=== PATIENT | male | born 1970 | race Two or more races ===

== ENCOUNTER 2020-01-19 09:24 | Outpatient (REF) | payer SELFPAY ==
[2020-01-19 10:21] LABS: Cholesterol 200 mg/dL
== END 2020-01-19 09:25 | disposition home or self-care (01) ==
LOC: HO.LNC 09:24
PROVIDERS: Visit Provider Pathology Anatomic Pathology & Clinical Pathology
DX: R79.89 Other specified abnormal findings of blood chemistry (principal)
CPT/HCPCS: 82465

== ENCOUNTER 2020-03-22 12:42 | Outpatient (REF) | payer SELFPAY ==
[2020-03-22 14:15] LABS: SARS COV2 IgG Negative (Negative)
[2020-03-22 17:44] LABS: Cholesterol 179 mg/dL
== END 2020-03-22 12:43 | disposition home or self-care (01) ==
LOC: HO.LNC 12:42
PROVIDERS: Visit Provider Pathology Anatomic Pathology & Clinical Pathology
DX: Z13.89 Encounter for screening for other disorder (principal)
CPT/HCPCS: 36415; 82465; 86769

== ENCOUNTER 2020-04-12 14:10 | Outpatient (REF) | payer OTHER, SELFPAY ==
[2020-04-12 14:59] LABS: MANUAL DIFF FLAG NO
[2020-04-12 15:03] LABS: Basophils Percent Auto 0.7 % (0-2); Eosinophils Absolute Auto 0.2 X10*3/uL (0.0-0.4); Hematocrit 44.1 % (42-52); Imm Gran Abs Auto 0.02 X10*3/uL (0.00-0.03); Imm Gran Pct Auto 0.4 % (0.0-0.4); Lymphocytes Absolute Auto 1.1 X10*3/uL (1.2-4.9); Lymphocytes Percent Auto 19.3 % (20-40); Mean Corpuscular Hemoglobin 29.4 pg (27.0-33.0); Mean Corpuscular Volume 86.5 fL (80-98); Mean Platelet Volume 10.4 fL (9.4-12.4); Monocytes Absolute Auto 0.6 X10*3/uL (0.1-1.2); Neutrophils Absolute Auto 3.7 X10*3/uL (2.0-8.3); Neutrophils Percent Auto 65.6 % (45-73); Platelet Count 215 X10*3/uL (160-400); Red Cell Distribution Width 12.7 % (11.0-16.0); White Blood Count 5.6 X10*3/uL (4.8-10.8)
[2020-04-12 15:43] LABS: Anion Gap 9 (12-20); Blood Urea Nitrogen 15 mg/dL (9-16); Calcium 9.6 mg/dL (8.4-10.2); Carbon Dioxide 29 mmol/L (22-29); Chloride 105 mmol/L (96-108); Cholesterol 179 mg/dL; Estimated Glomerular Filt Rate > 60; Glucose Random 83 mg/dL (60-115); HDL Cholesterol 62 mg/dL; LDL Cholesterol Calculated 111 mg/dl; Potassium 4.3 mmol/L (3.3-5.1); Sodium 139 mmol/L (135-145); Triglycerides 34 mg/dL
[2020-04-12 15:47] LABS: TSH reflex Free T4 0.41 uIU/mL (0.32-4.0)
[2020-04-12 15:57] LABS: Reflex LDLD? No
== END 2020-04-12 14:11 | disposition home or self-care (01) ==
LOC: HO.LAB 14:10
PROVIDERS: PCP Internal Medicine; Visit Provider Nurse Practitioner Family
DX: Z09 Encounter for follow-up examination after completed treatment for conditions other than malignant neoplasm (principal)
CPT/HCPCS: 36415; 80048; 80061; 84443; 85025

== ENCOUNTER 2020-04-20 04:05 | Emergency (ER) | payer OTHER, SELFPAY ==
--- NOTE | ~2020-04-20 | CT_ITS ---
EXAMINATION: CT ANGIOGRAM OF THE CHEST WITH AND WITHOUT CONTRAST (CT PULMONARY ANGIOGRAM FOR PE) CLINICAL INFORMATION: Reason for Exam Palpitations, elevated D-dimer, shortness of breath COMPARISON: 11/12/2017 TECHNIQUE: Prior to contrast administration, noncontrast localization images were obtained. Subsequently, multidetector volumetric imaging was performed from the thoracic inlet to below the diaphragms following the administration of 65 mL Omnipaque 350 intravenous contrast. No contrast reaction reported Sagittal, coronal, and MIP oblique sagittal reformatted images were obtained on the CT workstation, uploaded to PACS, and reviewed. This CT examination was performed using dose optimization techniques as appropriate, variously including the following: *Automated exposure control *Adjustment of mA and/or kV according to patient size (this includes techniques or standardized protocols for targeted exams where dose is matched to indication/reason for exam; i.e. extremities or head) *Use of iterative reconstruction technique Total exam dose-length product 352 mGy-cm FINDINGS: QUALITY OF STUDY/CONTRAST BOLUS: Satisfactory. PULMONARY ARTERIES: No central or segmental pulmonary emboli. THORACIC AORTA: No aneurysm or dissection. LUNG: No focal consolidation, nodules or masses. The central airways are patent. PLEURA: No pleural effusion or pneumothorax. MEDIASTINUM: Normal heart size. No pericardial effusion. No hilar or mediastinal lymphadenopathy. No evidence of septal bowing or right heart strain. CHEST WALL/AXILLA: No axillary or internal mammary lymphadenopathy. OSSEOUS STRUCTURES: No acute or suspicious osseous abnormality. Mild degenerative changes of the spine. UPPER ABDOMEN: Unremarkable. No reflux of contrast into the hepatic veins to suggest elevated right heart pressures. CT/CT angio chest PE protocol IMPRESSION: No pulmonary embolism or other acute intrathoracic abnormality. VTE: negative
[2020-04-20 04:14] VITALS: BP 147/81; PULSE 97; RESP 20; TEMP 36.4; O2SAT 100; BMI 33.0
--- NOTE | 2020-04-20 04:14 | ECG_ITS ---
Test Reason : PALP Blood Pressure : / mmHG Vent. Rate : 092 BPM Atrial Rate : 092 BPM P-R Int : 152 ms QRS Dur : 092 ms QT Int : 364 ms P-R-T Axes : 065 041 045 degrees QTc Int : 450 ms Normal sinus rhythm Normal ECG No previous ECGs available Referred By: Cristin Rodriguez Electronically Signed By:David Lopez
--- NOTE | 2020-04-20 04:22 | ED_ITS ---
HPI - Arrhythmia/Palpitations General Chief Complaint: Arrhythmia/Palpitations Stated Complaint: Palpitations Time Seen by Provider: 04/20/20 04:13 Source: patient Mode of arrival: ambulatory History of Present Illness HPI narrative: This is a 50-year-old male without significant past medical history who presents with onset of ?palpitations and racing heart? that occurred at approximately 2:00 a.m. this morning. Patient denies any associated headaches, dizziness, nausea, diaphoresis, but did have some mild shortness of breath. Patient states that his symptoms improved as he was coming to the emergency department. He endorses that this is happened previously but it was months ago. He denies any history of snoring or being told that he had obstructive sleep apnea. Of note, patient was recently started on terbinafine for onychomycosis. Related Data Previous Rx's Medication Instructions Recorded terbinafine HCl 250 mg tablet 250 mg PO DAILY 90 Days #90 tab 04/19/20 Allergies Allergy/AdvReac Type Severity Reaction Status Date / Time No Known Allergies Allergy Verified 04/19/20 09:12 [No Known Allergies*] Review of Systems Review of Systems: Pertinent positives and negatives as stated in HPI 10 point review systems is otherwise negative. PMFSH Past Medical History Source: nursing notes reviewed Medical History Obesity (BMI 30.0-34.9) Surgical History History of arthroscopy of left knee Family History Family History Father Suicide Mother No problems noted. Maternal Grandfather Prostate cancer Paternal Grandfather Hypertension Stroke Social History Social History Alcohol intake: current Alcohol intake frequency: a few times a month Smoking Status: Current some day smoker Tobacco Type: Cigarette Advance Directives: No Physical Exam Vital Signs: Vital Signs: Last Vital Signs Temp 97.6 F 04/20/20 04:14 Pulse 97 04/20/20 04:14 Resp 20 04/20/20 04:14 BP 147/81 H 04/20/20 04:14 Pulse Ox 100 04/20/20 04:14 Body Mass Index 33.0 VITAL SIGNS: Reviewed. GENERAL: Well developed, well nourished, in no acute distress. HEAD: Normocephalic/atraumatic, EYES: PERRLA, EOMI NOSE: Nares patent bilateral OROPHARYNX: no oral lesions noted, posterior pharynx clear NECK: Supple, no adenopathy LUNGS: Normal breath sounds. SpO2<100> CARDIOVASCULAR: Regular rate and rhythm without noted murmurs, no JVD or lower extremity edema. ABDOMEN: Obese, Soft, non-tender, non-distended with bowel sounds. SKIN: Inspection of the skin reveals no rashes NEUROLOGIC: Alert and oriented x 4. Strength and sensation to light touch were grossly intact x 4. Course Course Course Narrative: This is a 50-year-old male with history and clinical presentation consistent with palpitations that on review here in the emergency department had resolved and no observed ectopic beats on EKG. Will evaluate for any cardiopulmonary, PE, electrolyte etiologies. On review of all investigations there is a mild hypokalemia which was repleted with p.o. replacement and although there was an elevated D-dimer follow-up CT with PE protocol was negative for evidence of PE. Patient is otherwise stable and cleared for discharge and strongly recommended to follow-up with his primary care provider. MDM - Arrhythmia/Palpitations Lab Data Result diagrams: 04/20/20 04:22 04/20/20 04:22 Labs: Lab Results 04/20/20 04/20/20 04/20/20 Range/Units 04:22 04:22 04:22 WBC 6.8 (4.8-10.8) X10*3/uL RBC 4.96 (4.60-5.80) X10*6/uL Hgb 14.6 (14.0-18.0) g/dl Hct 42.2 (42-52) % MCV 85.1 (80-98) fL MCH 29.4 (27.0-33.0) pg MCHC 34.6 (31.0-36.0) g/dl RDW 12.7 (11.0-16.0) % Plt Count 223 (160-400) X10*3/uL MPV 10.3 (9.4-12.4) fL Immature Gran % (Auto) 0.1 (0.0-0.4) % Neut % (Auto) 63.5 (45-73) % Lymph % (Auto) 23.4 (20-40) % [place] % (Auto) 8.9 (2-11) % Eos % (Auto) 2.8 (0-4) % Baso % (Auto) 1.3 (0-2) % Lymph # (Auto) 1.6 (1.2-4.9) X10*3/uL [place] # (Auto) 0.6 (0.1-1.2) X10*3/uL Eos # (Auto) 0.2 (0.0-0.4) X10*3/uL Baso # (Auto) 0.1 (0.0-0.2) X10*3/uL Abs Immat Gran (auto) 0.01 (0.00-0.03) X10*3/uL Absolute Neuts (auto) 4.3 (2.0-8.3) X10*3/uL Absolute Nucleated RBC 0.000 (0.0-0.012) X10*3/uL Nucleated RBC % (auto) 0.0 (0.0-0.2) /100WBC PT 12.6 (10.8-13.0) SEC INR 1.1 (0.9-1.1) D-Dimer 356 NG/ML Sodium 140 (135-145) mmol/L Potassium 3.2 L D (3.3-5.1) mmol/L Chloride 105 (96-108) mmol/L Carbon Dioxide 26 (22-29) mmol/L Anion Gap 12 (12-20) BUN 14 (9-16) mg/dL Creatinine 1.10 (0.5-1.4) mg/dL Estim Creat Clear Calc 85.7 Estimated GFR > 60 Random Glucose 120 H D (60-115) mg/dL Calcium 9.1 (8.4-10.2) mg/dL Total Bilirubin 0.7 (0.0-1.0) mg/dL AST 25 (5-37) U/L ALT 20 (0-40) U/L Alkaline Phosphatase 54 (39-117) U/L Troponin I High Sens (<3.5-35.0) ng/L Total Protein 7.5 (6.5-8.0) g/dL Albumin 4.4 (3.5-5.0) g/dL Urine Color Urine Appearance Urine pH (5.0-8.0) Ur Specific [place] (1.005-1.025) Urine Protein (NEG-TRACE) MG/DL Urine Glucose (UA) (NEG) MG/DL Urine Ketones (NEG) MG/DL Urine Blood (NEG) Urine Nitrite (NEG) Ur Leukocyte Esterase (NEG) Urine RBC (0) /HPF Urine WBC (0-4) /HPF Ur Squamous Epith Cells /LPF Urine Bacteria /LPF Urine Mucus /LPF Urine Opiates Screen (Not Detect) Ur Barbiturates Screen (Not Detect) Ur Phencyclidine Scrn (Not Detect) Ur Amphetamines Screen (Not Detect) U Benzodiazepines Scrn (Not Detect) Urine Cocaine Screen (Not Detect) U Marijuana (THC) Screen (Not Detect) Ethyl Alcohol mg/dL 04/20/20 04/20/20 04/20/20 Range/Units 04:22 04:22 04:45 WBC (4.8-10.8) X10*3/uL RBC (4.60-5.80) X10*6/uL Hgb (14.0-18.0) g/dl Hct (42-52) % MCV (80-98) fL MCH (27.0-33.0) pg MCHC (31.0-36.0) g/dl RDW (11.0-16.0) % Plt Count (160-400) X10*3/uL MPV (9.4-12.4) fL Immature Gran % (Auto) (0.0-0.4) % Neut % (Auto) (45-73) % Lymph % (Auto) (20-40) % [place] % (Auto) (2-11) % Eos % (Auto) (0-4) % Baso % (Auto) (0-2) % Lymph # (Auto) (1.2-4.9) X10*3/uL [place] # (Auto) (0.1-1.2) X10*3/uL Eos # (Auto) (0.0-0.4) X10*3/uL Baso # (Auto) (0.0-0.2) X10*3/uL Abs Immat Gran (auto) (0.00-0.03) X10*3/uL Absolute Neuts (auto) (2.0-8.3) X10*3/uL Absolute Nucleated RBC (0.0-0.012) X10*3/uL Nucleated RBC % (auto) (0.0-0.2) /100WBC PT (10.8-13.0) SEC INR (0.9-1.1) D-Dimer NG/ML Sodium (135-145) mmol/L Potassium (3.3-5.1) mmol/L Chloride (96-108) mmol/L Carbon Dioxide (22-29) mmol/L Anion Gap (12-20) BUN (9-16) mg/dL Creatinine (0.5-1.4) mg/dL Estim Creat Clear Calc Estimated GFR Random Glucose (60-115) mg/dL Calcium (8.4-10.2) mg/dL Total Bilirubin (0.0-1.0) mg/dL AST (5-37) U/L ALT (0-40) U/L Alkaline Phosphatase (39-117) U/L Troponin I High Sens < 3.5 (<3.5-35.0) ng/L Total Protein (6.5-8.0) g/dL Albumin (3.5-5.0) g/dL Urine Color DARK YELLOW Urine Appearance CLEAR Urine pH 6.0 (5.0-8.0) Ur Specific [place] >= 1.030 H (1.005-1.025) Urine Protein NEG (NEG-TRACE) MG/DL Urine Glucose (UA) NEG (NEG) MG/DL Urine Ketones NEG (NEG) MG/DL Urine Blood TRACE (NEG) Urine Nitrite NEG (NEG) Ur Leukocyte Esterase NEG (NEG) Urine RBC 0-2 (0) /HPF Urine WBC 1-4 (0-4) /HPF Ur Squamous Epith Cells 1+ /LPF Urine Bacteria NONE /LPF Urine Mucus 3+ /LPF Urine Opiates Screen (Not Detect) Ur Barbiturates Screen (Not Detect) Ur Phencyclidine Scrn (Not Detect) Ur Amphetamines Screen (Not Detect) U Benzodiazepines Scrn (Not Detect) Urine Cocaine Screen (Not Detect) U Marijuana (THC) Screen (Not Detect) Ethyl Alcohol < 10 mg/dL 04/20/20 Range/Units 04:45 WBC (4.8-10.8) X10*3/uL RBC (4.60-5.80) X10*6/uL Hgb (14.0-18.0) g/dl Hct (42-52) % MCV (80-98) fL MCH (27.0-33.0) pg MCHC (31.0-36.0) g/dl RDW (11.0-16.0) % Plt Count (160-400) X10*3/uL MPV (9.4-12.4) fL Immature Gran % (Auto) (0.0-0.4) % Neut % (Auto) (45-73) % Lymph % (Auto) (20-40) % [place] % (Auto) (2-11) % Eos % (Auto) (0-4) % Baso % (Auto) (0-2) % Lymph # (Auto) (1.2-4.9) X10*3/uL [place] # (Auto) (0.1-1.2) X10*3/uL Eos # (Auto) (0.0-0.4) X10*3/uL Baso # (Auto) (0.0-0.2) X10*3/uL Abs Immat Gran (auto) (0.00-0.03) X10*3/uL Absolute Neuts (auto) (2.0-8.3) X10*3/uL Absolute Nucleated RBC (0.0-0.012) X10*3/uL Nucleated RBC % (auto) (0.0-0.2) /100WBC PT (10.8-13.0) SEC INR (0.9-1.1) D-Dimer NG/ML Sodium (135-145) mmol/L Potassium (3.3-5.1) mmol/L Chloride (96-108) mmol/L Carbon Dioxide (22-29) mmol/L Anion Gap (12-20) BUN (9-16) mg/dL Creatinine (0.5-1.4) mg/dL Estim Creat Clear Calc Estimated GFR Random Glucose (60-115) mg/dL Calcium (8.4-10.2) mg/dL Total Bilirubin (0.0-1.0) mg/dL AST (5-37) U/L ALT (0-40) U/L Alkaline Phosphatase (39-117) U/L Troponin I High Sens (<3.5-35.0) ng/L Total Protein (6.5-8.0) g/dL Albumin (3.5-5.0) g/dL Urine Color Urine Appearance Urine pH (5.0-8.0) Ur Specific [place] (1.005-1.025) Urine Protein (NEG-TRACE) MG/DL Urine Glucose (UA) (NEG) MG/DL Urine Ketones (NEG) MG/DL Urine Blood (NEG) Urine Nitrite (NEG) Ur Leukocyte Esterase (NEG) Urine RBC (0) /HPF Urine WBC (0-4) /HPF Ur Squamous Epith Cells /LPF Urine Bacteria /LPF Urine Mucus /LPF Urine Opiates Screen Not Detected (Not Detect) Ur Barbiturates Screen Not Detected (Not Detect) Ur Phencyclidine Scrn Not Detected (Not Detect) Ur Amphetamines Screen Not Detected (Not Detect) U Benzodiazepines Scrn Not Detected (Not Detect) Urine Cocaine Screen Not Detected (Not Detect) U Marijuana (THC) Screen Not Detected (Not Detect) Ethyl Alcohol mg/dL ECG Data Attestation: I personally reviewed and interpreted this ECG as follows: Prior ECG tracings: available for review (05/02/2016-stress test report) Interpretation: Normal sinus rhythm, HR-92, no evidence of acute ischemia, IL/QRS/QTC are within normal limits. Discharge Plan Discharge Clinical Impression: Hypokalemia, Palpitation Patient Disposition: Home, Self-Care Instructions: Heart Palpitations (ED), Hypokalemia (ED) Additional Instructions: Anson un seguimiento con laughlin proveedor de atenci?n primaria llamando al consultorio esta ma?alexandrea para marissa reevaluaci?n. No dude en volver al servicio de urgencias si experimenta un empeoramiento bárbara de michael s?ntomas. Prescriptions: No Action terbinafine HCl 250 mg tablet 250 mg PO DAILY 90 Days Qty: 90 RF: 0 Referrals: Alexandrea Pierre MD [Primary Care Provider] - 2 days (Re-evaluation management for low potassium and seen in the emergency department for palpitations with a negative workup.) Print Language: Grenadian
[2020-04-20 04:26] LABS: MANUAL DIFF FLAG NO
[2020-04-20 04:27] LABS: Basophils Absolute Auto 0.1 X10*3/uL (0.0-0.2); Basophils Percent Auto 1.3 % (0-2); Eosinophils Absolute Auto 0.2 X10*3/uL (0.0-0.4); Eosinophils Percent Auto 2.8 % (0-4); Hematocrit 42.2 % (42-52); Hemoglobin 14.6 g/dl (14.0-18.0); Imm Gran Abs Auto 0.01 X10*3/uL (0.00-0.03); Imm Gran Pct Auto 0.1 % (0.0-0.4); Lymphocytes Absolute Auto 1.6 X10*3/uL (1.2-4.9); Lymphocytes Percent Auto 23.4 % (20-40); Mean Corpuscular HGB Conc 34.6 g/dl (31.0-36.0); Mean Corpuscular Hemoglobin 29.4 pg (27.0-33.0); Mean Corpuscular Volume 85.1 fL (80-98); Mean Platelet Volume 10.3 fL (9.4-12.4); Monocytes Absolute Auto 0.6 X10*3/uL (0.1-1.2); Monocytes Percent Auto 8.9 % (2-11); Neutrophils Absolute Auto 4.3 X10*3/uL (2.0-8.3); Neutrophils Percent Auto 63.5 % (45-73); Platelet Count 223 X10*3/uL (160-400); Red Blood Count 4.96 X10*6/uL (4.60-5.80); Red Cell Distribution Width 12.7 % (11.0-16.0); White Blood Count 6.8 X10*3/uL (4.8-10.8)
[2020-04-20 04:32] LABS: INTERNATIONAL NORM RATIO 1.1 (0.9-1.1); Prothrombin Time 12.6 SEC (10.8-13.0)
[2020-04-20 04:49] LABS: Ethanol < 10 mg/dL
[2020-04-20 04:51] LABS: Alanine Aminotransferase 20 U/L (0-40); Albumin Level 4.4 g/dL (3.5-5.0); Alkaline Phosphatase 54 U/L (39-117); Anion Gap 12 (12-20); Aspartate Amino Transferase 25 U/L (5-37); Bilirubin Total 0.7 mg/dL (0.0-1.0); Blood Urea Nitrogen 14 mg/dL (9-16); Calcium 9.1 mg/dL (8.4-10.2); Carbon Dioxide 26 mmol/L (22-29); Chloride 105 mmol/L (96-108); Creatinine Clr Calc Pharmacy 85.7; Estimated Glomerular Filt Rate > 60; Glucose Random 120 mg/dL (60-115); Potassium 3.2 mmol/L (3.3-5.1); Sodium 140 mmol/L (135-145); Total Protein 7.5 g/dL (6.5-8.0)
[2020-04-20 04:52] LABS: Glucose Urine UA NEG (NEG); Leukocyte Esterase Urine NEG (NEG); Nitrite Urine NEG (NEG); Specific Gravity - Urine >= 1.030 (1.005-1.025); Urine Blood TRACE (NEG); Urine Ketones NEG (NEG); Urine Protein NEG (NEG-TRACE)
[2020-04-20 04:53] LABS: Appearance Urine CLEAR; Color Urine DARK YELLOW
[2020-04-20 04:55] LABS: Troponin-I High Sensitivity < 3.5 ng/L (<3.5-35.0)
[2020-04-20 05:00] LABS: Mucus Urine 3+ /LPF; RBC Urine 0-2 /HPF (0); Squamous Epithelial Cell Urine 1+ /LPF
[2020-04-20 05:03] LABS: Amphetamine Screen Urine Not Detected (Not Detect); Barbiturates, Urine Not Detected (Not Detect); Benzodiazepines Screen Urine Not Detected (Not Detect); Cannabinoid Screen Urine Not Detected (Not Detect); Cocaine Screen Urine Not Detected (Not Detect); Opiate Screen Urine Not Detected (Not Detect); Phencyclidine Screen Urine Not Detected (Not Detect)
[2020-04-20 05:08] LABS: D Dimer 356 NG/ML
[2020-04-20] MEDS: iohexoL 350 MG/ML 100 ML INFUS..BTL 65 ML IV (05:46)
[2020-04-20] MEDS: Potassium Chloride ER 20 MEQ TAB.ER.PRT 60 MEQ PO (06:24)
== END 2020-04-20 06:43 | disposition home or self-care (01) ==
PROVIDERS: Emergency Provider Student in an Organized Health Care Education/Training Program; PCP Internal Medicine
DX: R00.2 Palpitations (principal); E87.6 Hypokalemia; Z79.899 Other long term (current) drug therapy
CPT/HCPCS: 36415; 71275; 80053; 80307; 80320; 81001; 84484; 85025; 85379; 85610; 93005; 99283; 99284; Q9967

== ENCOUNTER 2020-11-23 12:45 | Emergency (ER) | payer OTHER, SELFPAY ==
--- NOTE | 2020-11-23 13:03 | ECG_ITS ---
Test Reason : CP Blood Pressure : / mmHG Vent. Rate : 097 BPM Atrial Rate : 097 BPM P-R Int : 154 ms QRS Dur : 084 ms QT Int : 324 ms P-R-T Axes : 057 036 041 degrees QTc Int : 411 ms Normal sinus rhythm with sinus arrhythmia Normal ECG When compared with ECG of 20-APR-2020 04:15, No significant change was found Referred By: Generic ED Physician Electronically Signed By:ANGY LUKE
[2020-11-23 13:11] VITALS: BP 158/91; PULSE 105; RESP 18; TEMP 36.6; O2SAT 99; BMI 31.3
--- NOTE | 2020-11-23 17:08 | ED_ITS ---
HPI - Chest Pain General Chief Complaint: Chest Pain Stated Complaint: chest pain, dizziness Time Seen by Provider: 11/23/20 16:15 Source: patient Mode of arrival: ambulatory Limitations: language barrier (First language is Guatemalan, the patient does speak some Rwandan, the bindery machine setter/set up operator was used to obtain information) History of Present Illness HPI narrative: 50-year-old male who presents emergency department for evaluation of chest pain and palpitations. The patient states that on Sunday (4 days prior to evaluation) he developed left-sided chest pain at around 6:00 p.m.. He took 2 Aleve and then the pain resolved. At around 10:00 p.m. he then developed a strong pulsatile sensation in his right shoulder area. He had no other associated symptoms. He went to [facility] and he states they checked his blood pressure, did blood work on him, and EKG and a chest x-ray. They told him these results were normal but they wanted to repeat his blood work in 2 hours however the patient's symptoms resolved, his blood work was not repeated 3-4 hours later so he left [facility]. He states that he continue to take Aleve for intermittent left-sided chest pain and then this resolved. He states that today at 2:00 a.m. he woke up and felt fine, got ready to go to work. 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 He took at lunch break at 10:30 a.m. and went back to work. At 11:00 a.m. he felt lightheaded and dizzy, he also developed the pulsatile sensation in his right shoulder area. He did not have any associated chest pain. He then developed the left-sided chest pain again which she describes as a pressure sensation which was 8/10 which was intermittent lasting minutes and worse with movement. He had no associated fever, chills, cough, shortness of breath, dyspnea on exertion, diaphoresis or lightheadedness associated with the chest pain. He continued to have intermittent left-sided chest pain therefore he came to the emergency department for evaluation. At the time of my evaluation, the patient was pain- free. The patient's cardiac risk factors include former smoker but he stopped smoking 3 years prior and only smoked for 3-4 years, he has a negative family history for orally coronary artery disease in primary relatives. He does not have diabetes, hypertension or high cholesterol that he is aware. The patient received his 1st Pfizer COVID-19 vaccination 11/08/2020. Related Data Previous Rx's Medication Instructions Recorded terbinafine HCl 250 mg tablet 250 mg PO DAILY 90 Days #90 tab 04/19/20 cyclobenzaprine 10 mg tablet 10 mg PO TID PRN #15 tab 11/23/20 Allergies Allergy/AdvReac Type Severity Reaction Status Date / Time No Known Allergies Allergy Verified 04/19/20 09:12 [No Known Allergies*] Review of Systems Review of Systems: Yes all other systems are reviewed and are negative [facility] Past Medical History [facility] Narrative: Social history: The patient states that he has been under increased stress since he is from his over the last 6 months. He states that he has been working more than usual and he has been feeling anxious. The patient is a former smoker, he states that he smoked for 3-4 years and stopped 3 years prior. He states that he occasionally drinks alcohol. He denies drug use. 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 Medical History Obesity (BMI 30.0-34.9) Surgical History History of arthroscopy of left knee Family History Family History Father Suicide Mother No problems noted. Maternal Grandfather Prostate cancer Paternal Grandfather Hypertension Stroke Social History Social History Alcohol intake: current Alcohol intake frequency: a few times a month Advance Directives: No Physical Exam Vital Signs: Vital Signs: Last Vital Signs Temp 98 F 11/23/20 13:11 Pulse 105 H 11/23/20 13:11 Resp 18 11/23/20 13:11 BP 158/91 H 11/23/20 13:11 Pulse Ox 99 11/23/20 13:11 Body Mass Index 31.3 Const: General: cooperative and no acute distress Orientation/consciousness: oriented to person and oriented to place Limitations: no limitations HENMT: Head: Yes normal to inspection, Yes normocephalic and Yes atraumatic Ears: external ears normal General nose exam: Normal external nose present Face and sinus: Yes normal facial exam Mouth: Normal oral and palatal mucosa present Throat: Yes posterior oropharynx normal Eyes: General: appearance normal, both eyes and all related structures Pupils: Equal, round and reactive pupils present Neck: Neck: Yes normal visual inspection, Yes no lymphadenopathy, Yes trachea midline and Yes supple Chest: Chest palpation & inspection: normal inspection of the chest and tenderness costochondral junction (Left) Resp: Effort & Inspection: normal respiratory effort and able to speak in complete sentences Auscultation: clear to auscultation bilaterally Cardio: Rate: regular rate Rhythm: regular rhythm Heart sounds: S1 normal heart sound present, S2 normal heart sound present and no murmurs GI: Inspection: Yes normal to inspection Palpation (GI): Soft to palpation, nontender and no guarding Auscultation: normal bowel sounds : General: Yes no CVA tenderness Back/Spine/Pelvis: Back: no CVA tenderness Skin: General skin exam: no rashes or lesions noted Neuro: General: oriented to person and oriented to place Cranial nerves: Yes CN's II-XII intact bilaterally and Yes Equal, round and reactive pupils present Cognition (Neuro): normal cognition Motor exam (neuro): 5/5 motor strength present throughout Extrem: General: Yes normal to inspection Psych: Appearance: grossly normal Speech and movement: Normal speech and movement present Affect: normal affect Attitude: cooperative Thought process: Normal thought process present Thought content: Normal thought content present Course Course Course Narrative: 50-year-old male who presents emergency department for evaluation of left-sided chest pain and palpitations which he has had intermittently and at the time of evaluation he was asymptomatic. The patient was seen at [facility] 5 days prior with a negative workup. The patient's vital signs were normal. Physical examination did reveal left-sided chest wall tenderness. The patient's 12 EKG was unremarkable. At this time I believe that the patient's palpitations are probably benign however the patient should discuss Holter monitor and event monitor with his PCP. I did discuss palpitations and musculoskeletal pain with the patient. The patient was advised to take Aleve 2 tablets every 12 hours as needed for left-sided chest pain, he was also given a prescription for Flexeril 10 mg 3 times a day as needed for pain and spasm of his chest wall. Patient was discharged home. Discharge Plan Discharge Clinical Impression: Heart palpitations, Acute costochondritis Patient Disposition: Home, Self-Care Instructions: Heart Palpitations (ED), Costochondritis (ED) Additional Instructions: Your EKG was normal, your symptoms are consistent with muscle and joint pain of your chest and not consistent with a heart attack. Your palpitations are most likely related to anxiety however you are not having palpitations at this time in your EKG is normal. To further evaluate your palpitations, you need a Holter monitor for 24 hours and this is normal, your doctor may need to get an event monitor on you that she wear for 1 month. Call your doctor tomorrow to discuss your palpitations and discuss getting a Holter monitor to further evaluate your symptoms. For your pain take Aleve (naproxen) 2 pills every 12 hours as needed for pain. Also take Flexeril (cyclobenzaprine) 10 mg pills, 1 pill every 6 hours while awake as needed for pain. This medication will make you sleepy, do not work or drive while taking these medications, only take them when you are home and you are not going to leave the house. Follow-up with your doctor in 2 days. Please return to the emergency department if your symptoms get worse or if you develop any symptoms that are concerning to you. Prescriptions: New cyclobenzaprine 10 mg tablet 10 mg PO TID PRN (Reason: pain, muscle spasm) Qty: 15 RF: 0 No Action terbinafine HCl 250 mg tablet 250 mg PO DAILY 90 Days Qty: 90 RF: 0 Print Language: Guatemalan
--- NOTE | 2020-11-23 17:15 | PC.NURSE ---
Pt alert and oriented. Pt states that he came to the ed for evaluation of chest pain and palpitations. He states that on Sunday he began left-sided chest pain. He took 2 Aleve and the pain resolved. He states that later that night the pain returned worse than it was before.
== END 2020-11-23 17:53 | disposition home or self-care (01) ==
PROVIDERS: Emergency Provider Emergency Medicine Emergency Medical Services; PCP Internal Medicine
DX: R07.9 Chest pain, unspecified (principal); R42 Dizziness and giddiness; R00.2 Palpitations; M94.0 Chondrocostal junction syndrome [Tietze]; Z79.899 Other long term (current) drug therapy
CPT/HCPCS: 93005; 99283

== ENCOUNTER 2021-02-14 10:15 | Outpatient (REF) | payer OTHER, SELFPAY ==
[2021-02-14 10:29] LABS: MANUAL DIFF FLAG NO
[2021-02-14 10:38] LABS: Basophils Absolute Auto 0.1 X10*3/uL (0.0-0.2); Basophils Percent Auto 1.1 % (0-2); Eosinophils Absolute Auto 0.2 X10*3/uL (0.0-0.4); Eosinophils Percent Auto 3.7 % (0-4); Hematocrit 42.6 % (42.0-52.0); Hemoglobin 13.8 g/dl (14.0-18.0); Imm Gran Abs Auto 0.01 X10*3/uL (0.00-0.03); Imm Gran Pct Auto 0.2 % (0.0-0.4); Lymphocytes Absolute Auto 1.4 X10*3/uL (1.2-4.9); Mean Corpuscular HGB Conc 32.4 g/dl (31.0-36.0); Mean Corpuscular Hemoglobin 26.8 pg (27.0-33.0); Mean Corpuscular Volume 82.7 fL (80.0-98.0); Mean Platelet Volume 10.3 fL (9.4-12.4); Monocytes Absolute Auto 0.6 X10*3/uL (0.1-1.2); Monocytes Percent Auto 11.5 % (2-11); Neutrophils Absolute Auto 3.2 x10*3/uL (2.0-8.3); Neutrophils Percent Auto 58.5 % (45-73); Platelet Count 271 X10*3/uL (160-400); Red Blood Count 5.15 X10*6/uL (4.60-5.80); Red Cell Distribution Width 13.6 % (11.0-16.0); White Blood Count 5.4 X10*3/uL (4.8-10.8)
[2021-02-14 11:04] LABS: Alanine Aminotransferase 19 U/L (0-40); Albumin Level 4.5 g/dL (3.5-5.0); Alkaline Phosphatase 59 U/L (39-117); Anion Gap 11 (12-20); Aspartate Amino Transferase 25 U/L (5-37); Bilirubin Total 0.5 mg/dL (0.0-1.0); Blood Urea Nitrogen 12 mg/dL (9-16); Calcium 10.1 mg/dL (8.4-10.2); Carbon Dioxide 29 mmol/L (22-29); Chloride 104 mmol/L (96-108); Cholesterol 186 mg/dL; Estimated Glomerular Filt Rate > 60; Glucose Fasting 100 mg/dL (60-99); HDL Cholesterol 56 mg/dL; LDL Cholesterol Calculated 105 mg/dl; Potassium 4.1 mmol/L (3.3-5.1); Sodium 140 mmol/L (135-145); Total Protein 8.1 g/dL (6.5-8.0); Triglycerides 129 mg/dL
[2021-02-14 11:24] LABS: Thyroid Stimulating Hormone 0.81 uIU/mL (0.32-4.0)
== END 2021-02-14 10:16 | disposition home or self-care (01) ==
LOC: HO.LAB 10:15
PROVIDERS: PCP Internal Medicine; Visit Provider Internal Medicine
DX: E66.9 Obesity, unspecified (principal); Z20.822 Contact with and (suspected) exposure to COVID-19
CPT/HCPCS: 36415; 80053; 80061; 84443; 85025; U0003; U0005

== ENCOUNTER 2021-05-09 11:52 | Outpatient (REF) | payer OTHER, SELFPAY ==
[2021-05-09 12:26] LABS: MANUAL DIFF FLAG NO
[2021-05-09 12:46] LABS: Basophils Absolute Auto 0.1 X10*3/uL (0.0-0.2); Basophils Percent Auto 1.1 % (0-2); Eosinophils Absolute Auto 0.3 X10*3/uL (0.0-0.4); Eosinophils Percent Auto 4.7 % (0-4); Hemoglobin 13.7 g/dl (14.0-18.0); Imm Gran Abs Auto 0.01 X10*3/uL (0.00-0.03); Imm Gran Pct Auto 0.2 % (0.0-0.4); Lymphocytes Absolute Auto 1.6 X10*3/uL (1.2-4.9); Lymphocytes Percent Auto 23.6 % (20-40); Mean Corpuscular HGB Conc 31.9 g/dl (31.0-36.0); Mean Corpuscular Hemoglobin 25.9 pg (27.0-33.0); Mean Corpuscular Volume 81.3 fL (80.0-98.0); Mean Platelet Volume 10.7 fL (9.4-12.4); Monocytes Absolute Auto 0.7 X10*3/uL (0.1-1.2); Monocytes Percent Auto 11.3 % (2-11); Neutrophils Absolute Auto 3.9 x10*3/uL (2.0-8.3); Neutrophils Percent Auto 59.1 % (45-73); Platelet Count 254 X10*3/uL (160-400); Red Blood Count 5.29 X10*6/uL (4.60-5.80); Red Cell Distribution Width 15.7 % (11.0-16.0); White Blood Count 6.6 X10*3/uL (4.8-10.8)
[2021-05-09 13:14] LABS: Alanine Aminotransferase 17 U/L (0-40); Albumin Level 4.4 g/dL (3.5-5.0); Alkaline Phosphatase 55 U/L (39-117); Anion Gap 9 (12-20); Aspartate Amino Transferase 24 U/L (5-37); Bilirubin Total 0.6 mg/dL (0.0-1.0); Blood Urea Nitrogen 14 mg/dL (9-16); Calcium 9.8 mg/dL (8.4-10.2); Carbon Dioxide 31 mmol/L (22-29); Chloride 104 mmol/L (96-108); Estimated Glomerular Filt Rate > 60; Glucose Random 96 mg/dL (60-115); Potassium 4.2 mmol/L (3.3-5.1); Sodium 140 mmol/L (135-145); Total Protein 7.6 g/dL (6.5-8.0)
[2021-05-09 13:34] LABS: Syphilis Screen Nonreactive (Nonreactive); TSH reflex Free T4 0.83 uIU/mL (0.32-4.0)
[2021-05-09 15:05] LABS: CT PCR NOT DETECTED (Not Detect.); NG PCR NOT DETECTED (Not Detect.)
[2021-05-10 05:32] LABS: HBc Num1 0.21 S/CO (0.00-0.79); Hepatitis B Core Antibody Nonreactive (Nonreactive); ~HepC Num1 0.14 S/CO (0.00-0.79); ~Hepatitis B Surface Antibody REACTIVE (Nonreactive); ~Hepatitis C Antibody Nonreactive (Nonreactive)
[2021-05-10 05:42] LABS: HBsAGNum1 0.22 S/CO (0.00-0.99); HIV AB/AG Nonreactive (Nonreactive); HIV Num 1 0.05 S/CO (0.00-0.99); Hepatitis B Surface Antigen Negative (Negative)
[2021-05-13 09:04] LABS: Hepatitis A Antibody IgM 0.17 Index (0-0.79); ~Hepatitis A Antibody IgM Nonreactive (Nonreactive)
[2021-05-13 22:22] LABS: Chlamydia Pneumoniae IgA <1:16 titer (<1:16); Chlamydia Pneumoniae IgG <1:64 titer (<1:64); Chlamydia Pneumoniae IgM <1:10 titer (<1:10); Chlamydia Psittaci IgA <1:16 titer (<1:16); Chlamydia Psittaci IgG <1:64 titer (<1:64); Chlamydia Psittaci IgM <1:10 titer (<1:10); Chlamydia Trachomatis IgA <1:16 titer (<1:16); Chlamydia Trachomatis IgG <1:64 titer (<1:64); Chlamydia Trachomatis IgM <1:10 titer (<1:10)
== END 2021-05-09 11:53 | disposition home or self-care (01) ==
LOC: HO.LAB 11:52
PROVIDERS: PCP Internal Medicine; Visit Provider Nurse Practitioner Acute Care
DX: E87.6 Hypokalemia (principal); Z20.2 Contact with and (suspected) exposure to infections with a predominantly sexual mode of transmission
CPT/HCPCS: 80053; 84443; 85025; 86631; 86632; 86704; 86706; 86709; 86780; 86803; 87340; 87389; 87491; 87591

== ENCOUNTER 2021-12-12 09:35 | Outpatient (REF) | payer OTHER, SELFPAY ==
[2021-12-12 09:45] LABS: MANUAL DIFF FLAG NO
[2021-12-12 10:05] LABS: Basophils Absolute Auto 0.1 X10*3/uL (0.0-0.2); Basophils Percent Auto 1.6 % (0-2); Eosinophils Absolute Auto 0.2 X10*3/uL (0.0-0.4); Eosinophils Percent Auto 3.7 % (0-4); Hematocrit 39.2 % (42.0-52.0); Hemoglobin 13.1 g/dl (14.0-18.0); Imm Gran Abs Auto 0.01 X10*3/uL (0.00-0.03); Imm Gran Pct Auto 0.2 % (0.0-0.4); Lymphocytes Absolute Auto 1.2 X10*3/uL (1.2-4.9); Lymphocytes Percent Auto 24.5 % (20-40); Mean Corpuscular HGB Conc 33.4 g/dl (31.0-36.0); Mean Corpuscular Hemoglobin 26.2 pg (27.0-33.0); Mean Corpuscular Volume 78.4 fL (80.0-98.0); Mean Platelet Volume 10.3 fL (9.4-12.4); Monocytes Absolute Auto 0.5 X10*3/uL (0.1-1.2); Monocytes Percent Auto 10.8 % (2-11); Neutrophils Absolute Auto 2.9 x10*3/uL (2.0-8.3); Neutrophils Percent Auto 59.2 % (45-73); Platelet Count 281 X10*3/uL (160-400); Red Cell Distribution Width 16.1 % (11.0-16.0); White Blood Count 4.9 X10*3/uL (4.8-10.8)
[2021-12-12 10:27] LABS: Iron 26 mcg/dL (45-160); Percent Iron Saturation 6 % (15-50); Total Iron Binding Capacity 403 mcg/dL (228-428); Unsaturated Iron Binding 377 ug/dL
== END 2021-12-12 09:36 | disposition home or self-care (01) ==
LOC: HO.LAB 09:35
PROVIDERS: PCP Internal Medicine; Visit Provider Internal Medicine
DX: D64.9 Anemia, unspecified (principal)
CPT/HCPCS: 36415; 83540; 85025

== ENCOUNTER 2022-01-17 09:53 | Emergency (ER) | payer OTHER, SELFPAY ==
--- NOTE | ~2022-01-17 | XR_ITS ---
EXAMINATION: XR LUMBOSACRAL SPINE CLINICAL INFORMATION: Low back pain COMPARISON: None TECHNIQUE: Three views of the lumbosacral spine. FINDINGS: There is normal lumbar lordosis. The vertebral heights, alignment and disc heights are normal. No visible acute fracture, dislocation or lytic process seen. SI joints are symmetrical and normal. The paravertebral soft tissues are normal. XR/XR lumbar spine 2-3V IMPRESSION: Unremarkable lumbar spine exam.
--- NOTE | ~2022-01-17 | CT_ITS ---
EXAMINATION: CT ABDOMEN AND PELVIS WITHOUT CONTRAST CLINICAL INFORMATION: Left flank and back pain since Sunday, now worse COMPARISON: None TECHNIQUE: Multidetector volumetric imaging was performed from the superior aspect of the liver through the pubic symphysis. Sagittal and coronal reformatted images were obtained on the technologist's workstation. This CT examination was performed using dose optimization techniques as appropriate, variously including the following: *Automated exposure control *Adjustment of mA and/or kV according to patient size (this includes techniques or standardized protocols for targeted exams where dose is matched to indication/reason for exam; i.e. extremities or head) *Use of iterative reconstruction technique DLP: 537 mGy-cm FINDINGS: LUNG BASES: The visualized lung bases are unremarkable. LIVER, GALLBLADDER, AND BILIARY TREE: The liver is normal in size, shape, and attenuation. No focal hepatic lesion or biliary ductal dilatation is present. The gallbladder is unremarkable with no evidence of radiopaque gallstones, gallbladder wall thickening, or obvious pericholecystic inflammatory changes. PANCREAS: Unremarkable. SPLEEN: Unremarkable. ADRENAL GLANDS: Unremarkable. KIDNEYS AND URETERS: Punctate 1 mm nonobstructing right lower pole renal calculus. No other radiodense urinary tract calculi. No hydronephrosis. Small 1 cm low-density benign/simple appearing left posterior upper pole renal cyst. No further follow-up required. No other renal lesion. No perinephric stranding. BLADDER: Mildly diffusely thick-walled and moderately distended. No focal bladder wall thickening. GASTROINTESTINAL TRACT: The small and large bowel are unremarkable. The appendix is unremarkable. No ascites or free air. ABDOMINAL WALL: Possible tiny fat-containing inguinal hernias. Tiny fat-containing umbilical hernia. LYMPH NODES: No lymphadenopathy. VASCULAR: Normal caliber abdominal aorta. PELVIC VISCERA: Prostate gland is enlarged measuring 5.3 x 4.4 x 5 cm in size slightly indenting into the bladder base. OSSEOUS STRUCTURES: No acute fracture or suspicious osseous lesion. Mild multilevel degenerative disc disease in the thoracic spine. CT/CT abdomen pelvis wo IV con IMPRESSION: 1. Punctate 1 mm nonobstructing right lower pole renal calculus. No other radiodense urinary tract calculi. No hydronephrosis. 2. No acute intra-abdominal process. 3. Prostatomegaly. Slightly thick-walled appearance of the urinary bladder. Correlate clinically with signs or symptoms of chronic bladder outlet obstruction.
[2022-01-17 10:12] VITALS: BP 154/79; PULSE 70; RESP 16; TEMP 36.4; O2SAT 99; BMI 31.3
--- NOTE | 2022-01-17 13:09 | ED_ITS ---
HPI - Back Pain/Injury General Chief Complaint: Back Pain/Injury Stated Complaint: Back Pain S/P Injury Time Seen by Provider: 01/17/22 12:55 Source: patient Mode of arrival: ambulatory Limitations: no limitations History of Present Illness HPI Narrative: 52yoM c PMHx of obesity presenting to the ED with complaints of mid to left lower back pain since Sunday worse today. Reports that he has had back pain in the past although usually resolves although this pain continues to worsen. He reports that he does a lot of heavy lifting at work although he does not recall any specific injury. He denies any fevers, chills, dizziness, headaches, neck pain/stiffness, trouble swallowing or breathing, chest pain or shortness of breath, dyspnea on exertion, orthopnea, palpitations, paresthesias, abdominal pain, flank pain, dysuria, hematuria, abnormal penile discharge, black or bloody stools, urinary bowel incontinence or retention, IV drug use, rashes, recent falls or trauma, saddle anesthesias or any other symptoms complaints or concerns at this time. MD elicited complaint: back pain Pertinent past history: prior back pain Onset (ago): day(s) (3 days ) Timing: constant and progressively worsening Severity: moderate Similar Symptoms Previously: Yes Quality: aching Location: left lower back Radiation: none Exacerbating factors: none Relieving factors: none Context: unknown Associated symptoms: denies other symptoms Related Data Previous Rx's Medication Instructions Recorded cyclobenzaprine 10 mg tablet 10 mg PO Q8H #14 tabs 01/17/22 ibuprofen 800 mg tablet 800 mg PO Q8H PRN pain #14 tabs 01/17/22 tamsulosin 0.4 mg capsule (Flomax) 0.4 mg PO DAILY #30 caps 01/17/22 Allergies Allergy/AdvReac Type Severity Reaction Status Date / Time No Known Allergies Allergy Verified 12/21/21 09:55 [No Known Allergies*] Review of Systems Review of Systems: Constitutional : No trauma, No Weight loss, No Fever, No Chills, ENT/Mouth : No Hearing loss, No Ear Pain, No Nasal Congestion, No Sinus Pain, No Hoarseness, No sore throat, No Rhinorrhea, No Swallowing Difficulty Cardiovascular : No Chest Pain, No SOB Respiratory : No Cough, No Dyspnea Gastrointestinal : No Nausea, No Vomiting, No Diarrhea, No abdominal Pain, No Hematochezia, No Melena Genitourinary : No Dysuria, No Urinary Frequency, No Hematuria, No Urinary or Bowel Incontinence/retention Musculoskeletal : + Back pain, No neck pain, No joint stiffness, No joint swelling Skin : No Skin Lesions, No rash or signs of infection Neuro : No Weakness, No radiation, No Numbness, No Paresthesias, No headache, no loss of bowel or bladder incontinence, no saddle anesthesia, Focal weakness, No radiation Denies history of IV drug usage. Yes all other systems are reviewed and are negative [facility] Past Medical History Attestation statement: The following information was validated with the patient. Source: old records reviewed and nursing notes reviewed Medical History Hypokalemia Obesity (BMI 30.0-34.9) Surgical History History of arthroscopy of left knee Family History Family History Father Suicide Mother No problems noted. Maternal Grandfather Prostate cancer Paternal Grandfather Hypertension Stroke Social History Social History Housing: Apartment Alcohol intake: current Alcohol intake frequency: a few times a month Alcohol type: beer Patient Tobacco Use Status: Never used Tobacco e-Cigarette/Vaping Use: Never Used Second Hand Smoke Exposure: No Advance Directives: No service: No Current occupational status: employed Current occupational exposures/hazards: No Cognitive needs: No Hearing needs: No Vision needs: Yes (Glasses) Physical Exam Vital Signs: Vital Signs: Last Vital Signs Temp 97.6 F 01/17/22 10:12 Pulse 70 01/17/22 10:12 Resp 16 01/17/22 10:12 BP 154/79 H 01/17/22 10:12 Pulse Ox 99 01/17/22 10:12 O2 Del Method 01/17/22 10:12 BMI result Body Mass Index 31.3 vital signs have been reviewed as normal and appeared to be correct. Blood pressure normal. Heart rate normal. Respiration rate normal. Temperature normal. Oxygen saturation normal. Appearance: Alert. Oriented X3. No acute distress. Head: Normal external exam. Normocephalic. Atraumatic. No Quinn signs noted. No raccoon eyes noted Eyes: PERRLA. EOMI. Conjunctiva and sclera normal. Eyelids normal. ENT: EAC normal. TM's Normal. Pharynx normal. Uvula midline. Moist mucous membranes. No trismus noted. No drooling noted. No muffled voice noted. Neck: Normal inspection. Neck supple. FROM. No adenopathy. Thyroid Normal. No meningeal signs. No neck mass noted. CVS: Normal heart rate and rhythm. Heart sound normal. No murmurs noted. Pulses normal throughout. Respiratory: No respiratory distress. Painless inspiration. Breath sounds n ormal. No wheezes/rales/rhonchi noted. Chest nontender. No accessory muscle usage noted or decreased air movement noted. Abdomen: Soft and nontender. Bowel sounds normal in all 4 quadrants. No diste ntion noted. No organomegaly noted. No visible injury noted. Back: No CVA tenderness. Full range of motion noted. No obvious deformities, or edema. Mild para-spinal muscular tenderness from lumbar region to coccyx. Full ROM in back and lower extremities. 5/5 strength hip extension/flexion, abduction, adduction. Mild Lumbar pain with hip flexion against resistance. Straight leg raise test negative on right; Straight leg raise test negative on left; Reflexes normal ankle and knee bilaterally; EHL motor strength normal bilaterally. No rashes/lesion/induration/fluctuance or signs infection noted. Skin: Skin warm and dry. Normal skin color. Normal skin turgor. No rashes/lesions/lacerations noted. Extremities: No lower extremity edema. Extremities exhibit normal range of motion. Extremities nontender. Neuro: Oriented X 3. No motor deficit. No sensory deficit. Reflexes normal. Patient has a normal steady gait. Course Course Course Narrative: 1pm - Pt c likely muscular pain, but could be herniated disc. Neuro exam shows no deficits. Not c/w AAA/epidural abscess/dissection.No high risk Hx (Incont, fever, immunosupp, recent surgery/LP, coag, signif trauma, wt loss, puls mass, hx/o Ca, TB, or IVDU) to warrant MRI today. Not c/w Pyelo/UTI/kidney stone/spinal fx. Not cauda equina syndrome. Will obtain a CT scan abdomen pelvis IV contrast and UA and re-evaluate. Reevaluation(s) Reevaluation #1: - patient with renal stone in the right kidney. Left kidney cyst. Along with arthritis of lumbar spine. Also noted to have enlarged prostate. - will DC home with symptomatic treatment for muscular skeletal pain and will DC home with Flomax for enlarged prostate and referral to Urology and to return if any new or worsening symptoms. Patient at bedside understand agree this plan. Time: 15:06 [facility] - Back Pain/Injury Medical Records Attestation: I reviewed the patient's medical records. Lab Data Attestation: I reviewed the patient's lab results. Imaging Data CT scan abdomen pelvis without IV contrast: Attestation: I personally reviewed and interpreted this imaging study as follows: Radiologist's impression: FINDINGS: LUNG BASES: The visualized lung bases are unremarkable.? LIVER, GALLBLADDER, AND BILIARY TREE: The liver is normal in size, shape, and attenuation. No focal hepatic lesion or biliary ductal dilatation is present. The gallbladder is unremarkable with no evidence of radiopaque gallstones, gallbladder wall thickening, or obvious pericholecystic inflammatory changes.? PANCREAS: Unremarkable.? SPLEEN: Unremarkable.? ADRENAL GLANDS: Unremarkable.? KIDNEYS AND URETERS: Punctate 1 mm nonobstructing right lower pole renal calculus. No other radiodense urinary tract calculi. No hydronephrosis. Small 1 cm low-density benign/simple appearing left posterior upper pole renal cyst. No further follow-up required. No other renal lesion. No perinephric stranding. BLADDER: Mildly diffusely thick-walled and moderately distended. No focal bladder wall thickening.? GASTROINTESTINAL TRACT: The small and large bowel are unremarkable. The appendix is unremarkable. No ascites or free air. ABDOMINAL WALL: Possible tiny fat-containing inguinal hernias. Tiny fat-containing umbilical hernia. LYMPH NODES: No lymphadenopathy. VASCULAR: Normal caliber abdominal aorta. PELVIC VISCERA: Prostate gland is enlarged measuring 5.3 x 4.4 x 5 cm in size slightly indenting into the bladder base.? OSSEOUS STRUCTURES: No acute fracture or suspicious osseous lesion. Mild multilevel degenerative disc disease in the thoracic spine. CT/CT abdomen pelvis wo IV con IMPRESSION: 1.? Punctate 1 mm nonobstructing right lower pole renal calculus. No other radiodense urinary tract calculi. No hydronephrosis. 2.? No acute intra-abdominal process. 3.? Prostatomegaly. Slightly thick-walled appearance of the urinary bladder. Correlate clinically with signs or symptoms of chronic bladder outlet obstruction. ? ? Discharge Plan Discharge Clinical Impression: Strain of lumbar region, Renal colic, Renal cyst, Enlarged prostate Patient Disposition: Home, Self-Care Instructions: Enlarged Prostate (BPH) (ED), Renal Colic (ED), Low Back Strain (ED), Kidney Cyst (ED) Prescriptions: New ibuprofen 800 mg tablet 800 mg PO Q8H PRN (Reason: pain) Qty: 14 0RF cyclobenzaprine 10 mg tablet 10 mg PO Q8H Qty: 14 0RF tamsulosin [Flomax] 0.4 mg capsule 0.4 mg PO DAILY Qty: 30 0RF Referrals: Eddie Ny MD [Physician] - (call to make a follow up appointment ) Alexandrea Pierre MD [Primary Care Provider] - 2 days Stand Alone Forms: Work/School Release Print Language: [place]
[2022-01-17 15:23] LABS: Appearance Urine Clear; Color Urine Yellow; Glucose Urine UA Negative (Negative); Leukocyte Esterase Urine Negative (Negative); Nitrite Urine Negative (Negative); PH 5.5 (5.0-9.0); Urine Blood Negative (Negative); Urine Ketones Negative (Negative); Urine Protein Negative (Neg-Trace)
== END 2022-01-17 15:38 | disposition home or self-care (01) ==
PROVIDERS: Physician Assistant Medical; Emergency Provider Emergency Medicine Emergency Medical Services; PCP Internal Medicine
DX: N23 Unspecified renal colic (principal); M54.50 Low back pain, unspecified; N40.0 Benign prostatic hyperplasia without lower urinary tract symptoms; N28.1 Cyst of kidney, acquired; Z79.899 Other long term (current) drug therapy
CPT/HCPCS: 72100; 74176; 81003; 99283; 99284

== ENCOUNTER 2022-02-13 10:35 | Outpatient (REF) | payer OTHER, SELFPAY | END 2022-02-13 10:36 | disposition home or self-care (01) | LOC: HO.LAB 10:35 | PROVIDERS: PCP Internal Medicine; Visit Provider Urology | DX: N40.0 Benign prostatic hyperplasia without lower urinary tract symptoms (principal); N20.0 Calculus of kidney; R39.89 Other symptoms and signs involving the genitourinary system | CPT/HCPCS: 51798; 88112; 99202 ==

== ENCOUNTER 2022-02-21 08:56 | Outpatient (REF) | payer OTHER, SELFPAY ==
[2022-02-21 09:41] LABS: Urine Cytology See Pathology rpt
[2022-02-21 10:27] LABS: PSA,Total (Free>4and<10) 2.83 ng/mL (0.00-4.00)
== END 2022-02-21 08:57 | disposition home or self-care (01) ==
LOC: HO.LAB 08:56
PROVIDERS: PCP Internal Medicine; Visit Provider Urology
DX: Z12.5 Encounter for screening for malignant neoplasm of prostate (principal); N40.0 Benign prostatic hyperplasia without lower urinary tract symptoms
CPT/HCPCS: 36415; 84153; 88112

== ENCOUNTER → 2022-03-20 11:14 | Outpatient (BNVA) | payer OTHER, SELFPAY | PROVIDERS: PCP Internal Medicine; Visit Provider Urology | DX: N40.0 Benign prostatic hyperplasia without lower urinary tract symptoms (principal); N20.0 Calculus of kidney; R39.89 Other symptoms and signs involving the genitourinary system | CPT/HCPCS: 52000; 99212 ==

== ENCOUNTER 2022-03-24 08:34 | Outpatient (REF) | payer OTHER, SELFPAY ==
[2022-03-24 08:47] VITALS: BMI 31.3
[2022-03-24 08:48] VITALS: BP 139/81; PULSE 88; RESP 16; TEMP 36.8; O2SAT 98
[2022-03-24 10:40] VITALS: BP 132/78; PULSE 82; RESP 16; O2SAT 99
--- NOTE | 2022-03-24 10:58 | W.PM.OPN ---
Operative Note Operative Note Date of Service: 03/24/22 Narrative: PreOperative Diagnosis:? ?Abnormal prostate exam, prostate nodule Post Operative Diagnosis:??Abnormal prostate exam, prostate nodule Procedure:?1. Transrectal ultrasound guided biopsy of the prostate 12 core 2. Transrectal ultrasound measurement of prostate 3. Transrectal ultrasound guided pudendal nerve block Surgeon:?Dr Nita Wang Anesthesia:? Local Indications for procedure: Abnormal prostate exam, prostate nodule Procedure: After informed consent was verified the patient was brought into the procedure room and placed on the procedure table in left lateral position. Patient identity confirmed. Preoperative antibiotics confirmed. Safety pause time-out performed. Digital rectal exam performed to dilate rectal sphincter, iodine mixed with lubricant jelly 30 cc placed per rectum. Ultrasound probe was placed per rectum. The prostate was visualized. The prostate was measured height 3.22 cm, width 5.64 cm, length 5.50 cm with a volume of 52.2 mL. An ultrasound guided pudendal nerve block was performed using 10 cc of 1% lidocaine, a 12 core biopsy was performed from the left base, left mid, left apex and right base, mid, apex 2 biopsies from each section. The ultrasound probe was removed and digital palpation of the prostate for 1-2 minutes for hemostasis was performed. The patient tolerated the procedure well. The patient was able to ambulate and use the bathroom after 5 minutes. The patient is instructed to complete his antibiotics and to call for any concerns. Complications: None
== END 2022-03-24 08:35 | disposition home or self-care (01) ==
LOC: HO.MS 08:34
PROVIDERS: PCP Internal Medicine; Visit Provider Urology
PROC: (CPT 55700; principal; 2022-03-24 09:00)
DX: N40.2 Nodular prostate without lower urinary tract symptoms (principal)
CPT/HCPCS: 55700; 76942; 88305; 88344

== ENCOUNTER → 2022-04-10 13:11 | Outpatient (BNVA) | payer OTHER, SELFPAY | PROVIDERS: PCP Internal Medicine; Visit Provider Nurse Practitioner Family | DX: N40.0 Benign prostatic hyperplasia without lower urinary tract symptoms (principal); N52.9 Male erectile dysfunction, unspecified | CPT/HCPCS: 99212 ==

== ENCOUNTER 2022-07-10 12:28 | Emergency (ER) | payer OTHER, SELFPAY ==
--- NOTE | 2022-07-10 12:30 | ECG_ITS ---
Test Reason : chest pain Blood Pressure : / mmHG Vent. Rate : 097 BPM Atrial Rate : 097 BPM P-R Int : 142 ms QRS Dur : 082 ms QT Int : 338 ms P-R-T Axes : 062 036 048 degrees QTc Int : 429 ms Normal sinus rhythm Normal ECG No previous ECGs available Referred By: Generic ED Physician Electronically Signed By:RAJWINDER HAIDER
[2022-07-10 12:36] VITALS: BP 140/81; PULSE 98; RESP 16; O2SAT 98; BMI 32.6
--- NOTE | 2022-07-10 12:38 | ED_ITS ---
HPI - General Adult General Chief complaint: Chest Pain Stated complaint: chest pain Related Data Previous Rx's Medication Instructions Recorded clotrimazole-betamethasone 1 1 appl topical BID 30 days #45 05/29/22 %-0.05 % topical cream grams cyclobenzaprine 10 mg tablet 10 mg PO BEDTIME #14 tabs 07/24/22 meloxicam 15 mg tablet 15 mg PO DAILY #14 tabs 07/24/22 ibuprofen 600 mg tablet 600 mg PO Q6H PRN fever or pain 08/02/22 #30 tabs tamsulosin 0.4 mg capsule (Flomax) 0.4 mg PO DAILY #90 caps 08/02/22 Allergies Allergy/AdvReac Type Severity Reaction Status Date / Time No Known Allergies Allergy Verified 08/02/22 11:43 [No Known Allergies*] [facility] Past Medical History Medical History Hypokalemia Obesity (BMI 30.0-34.9) Surgical History History of arthroscopy of left knee Family History Family History Father Suicide Mother No problems noted. Maternal Grandfather Prostate cancer Paternal Grandfather Hypertension Stroke Social History Social History Housing: Apartment Alcohol intake: current Alcohol intake frequency: holidays/special occasions only Alcohol type: beer Patient Tobacco Use Status: Never used Tobacco e-Cigarette/Vaping Use: Never Used Second Hand Smoke Exposure: No service: No Current occupational status: employed Current occupational exposures/hazards: No Cognitive needs: No Hearing needs: No Vision needs: Yes (Glasses) Physical Exam ED Vital Signs: BMI result Body Mass Index 32.6 Course Course Course Narrative: RME- 52-year-old male with past medical history significant for high blood pressure presents for evaluation of chest pain that started at 01:30 this morning. Patient reports history of musculoskeletal chest pain. Denies any known cardiac history, EKG sinus rhythm with rate of 97, no ischemic changes. Plan for labs including troponin Medical Decision Making Lab Data 07/10/22 12:44 07/10/22 12:44 Labs: Lab Results 07/10/22 07/10/22 07/10/22 Range/Units 12:44 12:44 12:44 WBC 6.6 (4.8-10.8) X10*3/uL RBC 5.52 (4.60-5.80) X10*6/uL Hgb 15.2 (14.0-18.0) g/dl Hct 44.5 (42.0-52.0) % MCV 80.6 (80.0-98.0) fL MCH 27.5 (27.0-33.0) pg MCHC 34.2 (31.0-36.0) g/dl RDW 15.3 (11.0-16.0) % Plt Count 245 (160-400) X10*3/uL MPV 10.0 (9.4-12.4) fL Immature Gran % (Auto) 0.2 (0.0-0.4) % Neut % (Auto) 72.5 (45-73) % Lymph % (Auto) 17.3 L (20-40) % [place] % (Auto) 7.4 (2-11) % Eos % (Auto) 1.4 (0-4) % Baso % (Auto) 1.2 (0-2) % Lymph # (Auto) 1.1 L (1.2-4.9) X10*3/uL [place] # (Auto) 0.5 (0.1-1.2) X10*3/uL Eos # (Auto) 0.1 (0.0-0.4) X10*3/uL Baso # (Auto) 0.1 (0.0-0.2) X10*3/uL Abs Immat Gran (auto) 0.01 (0.00-0.03) X10*3/uL Absolute Neuts (auto) 4.8 (2.0-8.3) x10*3/uL Absolute Nucleated RBC 0.000 (0.0-0.012) X10*3/uL Nucleated RBC % (auto) 0.0 (0.0-0.2) /100WBC PT 12.4 (10.0-13.1) SEC INR 1.1 (0.9-1.1) APTT 35.0 (26.0-36.4) SEC Sodium 138 (135-145) mmol/L Potassium 4.2 (3.3-5.1) mmol/L Chloride 107 (96-108) mmol/L Carbon Dioxide 25 (22-29) mmol/L Anion Gap 10 L (12-20) BUN 15 (9-16) mg/dL Creatinine 1.23 (0.5-1.4) mg/dL Estim Creat Clear Calc 76.9 Estimated GFR > 60 Random Glucose 108 (60-115) mg/dL Calcium 9.5 (8.4-10.2) mg/dL Total Bilirubin 0.5 (0.0-1.0) mg/dL AST 25 (5-37) U/L ALT 24 (0-40) U/L Alkaline Phosphatase 57 (39-117) U/L Troponin I High Sens (<3.5-35.0) ng/L Total Protein 7.1 (6.5-8.0) g/dL Albumin 4.3 (3.5-5.0) g/dL Lipase 25 (8-78) U/L 07/10/22 Range/Units 12:44 WBC (4.8-10.8) X10*3/uL RBC (4.60-5.80) X10*6/uL Hgb (14.0-18.0) g/dl Hct (42.0-52.0) % MCV (80.0-98.0) fL MCH (27.0-33.0) pg MCHC (31.0-36.0) g/dl RDW (11.0-16.0) % Plt Count (160-400) X10*3/uL MPV (9.4-12.4) fL Immature Gran % (Auto) (0.0-0.4) % Neut % (Auto) (45-73) % Lymph % (Auto) (20-40) % [place] % (Auto) (2-11) % Eos % (Auto) (0-4) % Baso % (Auto) (0-2) % Lymph # (Auto) (1.2-4.9) X10*3/uL [place] # (Auto) (0.1-1.2) X10*3/uL Eos # (Auto) (0.0-0.4) X10*3/uL Baso # (Auto) (0.0-0.2) X10*3/uL Abs Immat Gran (auto) (0.00-0.03) X10*3/uL Absolute Neuts (auto) (2.0-8.3) x10*3/uL Absolute Nucleated RBC (0.0-0.012) X10*3/uL Nucleated RBC % (auto) (0.0-0.2) /100WBC PT (10.0-13.1) SEC INR (0.9-1.1) APTT (26.0-36.4) SEC Sodium (135-145) mmol/L Potassium (3.3-5.1) mmol/L Chloride (96-108) mmol/L Carbon Dioxide (22-29) mmol/L Anion Gap (12-20) BUN (9-16) mg/dL Creatinine (0.5-1.4) mg/dL Estim Creat Clear Calc Estimated GFR Random Glucose (60-115) mg/dL Calcium (8.4-10.2) mg/dL Total Bilirubin (0.0-1.0) mg/dL AST (5-37) U/L ALT (0-40) U/L Alkaline Phosphatase (39-117) U/L Troponin I High Sens < 2.7 (<3.5-35.0) ng/L Total Protein (6.5-8.0) g/dL Albumin (3.5-5.0) g/dL Lipase (8-78) U/L Discharge Plan Discharge Clinical Impression: Chest pain Patient Disposition: Elopement Prescriptions: No Action ibuprofen 600 mg tablet 600 mg PO Q6H PRN (Reason: fever or pain) Qty: 30 0RF clotrimazole-betamethasone 1-0.05 % cream 1 appl topical BID 30 Days Qty: 45 0RF meloxicam 15 mg tablet 15 mg PO DAILY Qty: 14 0RF cyclobenzaprine 10 mg tablet 10 mg PO BEDTIME Qty: 14 0RF tamsulosin [Flomax] 0.4 mg capsule 0.4 mg PO DAILY Qty: 90 3RF Interventions: ED Discharge Assessment Last Done: 07/10/22 19:10 Discharge Date/Time: 07/10/22 19:10
[2022-07-10 12:48] LABS: MANUAL DIFF FLAG NO
[2022-07-10 12:50] LABS: Basophils Absolute Auto 0.1 X10*3/uL (0.0-0.2); Basophils Percent Auto 1.2 % (0-2); Eosinophils Absolute Auto 0.1 X10*3/uL (0.0-0.4); Eosinophils Percent Auto 1.4 % (0-4); Hematocrit 44.5 % (42.0-52.0); Hemoglobin 15.2 g/dl (14.0-18.0); Imm Gran Abs Auto 0.01 X10*3/uL (0.00-0.03); Imm Gran Pct Auto 0.2 % (0.0-0.4); Lymphocytes Absolute Auto 1.1 X10*3/uL (1.2-4.9); Lymphocytes Percent Auto 17.3 % (20-40); Mean Corpuscular HGB Conc 34.2 g/dl (31.0-36.0); Mean Corpuscular Hemoglobin 27.5 pg (27.0-33.0); Mean Corpuscular Volume 80.6 fL (80.0-98.0); Monocytes Absolute Auto 0.5 X10*3/uL (0.1-1.2); Monocytes Percent Auto 7.4 % (2-11); Neutrophils Absolute Auto 4.8 x10*3/uL (2.0-8.3); Neutrophils Percent Auto 72.5 % (45-73); Platelet Count 245 X10*3/uL (160-400); Red Blood Count 5.52 X10*6/uL (4.60-5.80); Red Cell Distribution Width 15.3 % (11.0-16.0); White Blood Count 6.6 X10*3/uL (4.8-10.8)
[2022-07-10 12:57] LABS: INTERNATIONAL NORM RATIO 1.1 (0.9-1.1); Prothrombin Time 12.4 SEC (10.0-13.1)
[2022-07-10 13:06] LABS: Alanine Aminotransferase 24 U/L (0-40); Albumin Level 4.3 g/dL (3.5-5.0); Alkaline Phosphatase 57 U/L (39-117); Anion Gap 10 (12-20); Aspartate Amino Transferase 25 U/L (5-37); Bilirubin Total 0.5 mg/dL (0.0-1.0); Blood Urea Nitrogen 15 mg/dL (9-16); Calcium 9.5 mg/dL (8.4-10.2); Carbon Dioxide 25 mmol/L (22-29); Chloride 107 mmol/L (96-108); Creatinine Clr Calc Pharmacy 76.9; Estimated Glomerular Filt Rate > 60; Glucose Random 108 mg/dL (60-115); Lipase 25 U/L (8-78); Potassium 4.2 mmol/L (3.3-5.1); Sodium 138 mmol/L (135-145); Total Protein 7.1 g/dL (6.5-8.0)
[2022-07-10 13:16] LABS: Troponin-I High Sensitivity < 2.7 ng/L (<3.5-35.0)
== END 2022-07-10 19:10 | disposition left against medical advice (07) ==
LOC: HO.ED 19:04
PROVIDERS: Physician Assistant; Emergency Provider Emergency Medicine; PCP Internal Medicine
DX: R07.89 Other chest pain (principal); Z79.899 Other long term (current) drug therapy
CPT/HCPCS: 36415; 80053; 83690; 84484; 85025; 85610; 85730; 93005; 99283

== ENCOUNTER 2022-08-02 04:30 | Emergency (ER) | payer OTHER, SELFPAY ==
[2022-08-02 04:32] VITALS: BP 154/92; PULSE 86; RESP 18; TEMP 36.6; O2SAT 98; BMI 27.4
--- NOTE | 2022-08-02 04:35 | ECG_ITS ---
Test Reason : CHEST PAIN Blood Pressure : / mmHG Vent. Rate : 070 BPM Atrial Rate : 070 BPM P-R Int : 148 ms QRS Dur : 086 ms QT Int : 364 ms P-R-T Axes : 048 033 041 degrees QTc Int : 393 ms Normal sinus rhythm Normal ECG When compared with ECG of 10-JUL-2022 12:31, No significant change was found Referred By: Generic ED Physician Electronically Signed By:MILAGROS WALLIS MD
[2022-08-02 04:47] LABS: MANUAL DIFF FLAG NO
[2022-08-02 04:48] LABS: Basophils Absolute Auto 0.1 X10*3/uL (0.0-0.2); Basophils Percent Auto 0.8 % (0-2); Eosinophils Absolute Auto 0.2 X10*3/uL (0.0-0.4); Eosinophils Percent Auto 2.8 % (0-4); Hematocrit 46.1 % (42.0-52.0); Hemoglobin 15.5 g/dl (14.0-18.0); Imm Gran Abs Auto 0.02 X10*3/uL (0.00-0.03); Imm Gran Pct Auto 0.3 % (0.0-0.4); Lymphocytes Absolute Auto 1.6 X10*3/uL (1.2-4.9); Mean Corpuscular HGB Conc 33.6 g/dl (31.0-36.0); Mean Corpuscular Hemoglobin 27.8 pg (27.0-33.0); Mean Corpuscular Volume 82.6 fL (80.0-98.0); Mean Platelet Volume 9.9 fL (9.4-12.4); Monocytes Absolute Auto 0.7 X10*3/uL (0.1-1.2); Monocytes Percent Auto 10.2 % (2-11); Neutrophils Absolute Auto 4.5 x10*3/uL (2.0-8.3); Neutrophils Percent Auto 62.9 % (45-73); Platelet Count 219 X10*3/uL (160-400); Red Blood Count 5.58 X10*6/uL (4.60-5.80); Red Cell Distribution Width 14.9 % (11.0-16.0); White Blood Count 7.1 X10*3/uL (4.8-10.8)
[2022-08-02 05:02] LABS: Anion Gap 12 (12-20); Blood Urea Nitrogen 11 mg/dL (9-16); Calcium 9.4 mg/dL (8.4-10.2); Carbon Dioxide 25 mmol/L (22-29); Chloride 107 mmol/L (96-108); Creatinine Clr Calc Pharmacy 79.7; Estimated Glomerular Filt Rate > 60; Glucose Random 90 mg/dL (60-115); Potassium 3.7 mmol/L (3.3-5.1); Sodium 140 mmol/L (135-145)
[2022-08-02 05:09] VITALS: BP 151/93; PULSE 82; RESP 16; TEMP 36.8; O2SAT 98
[2022-08-02 05:12] LABS: Troponin-I High Sensitivity < 2.7 ng/L (<3.5-35.0)
--- NOTE | 2022-08-02 05:28 | ED_ITS ---
HPI - Chest Pain General Chief Complaint: Chest Pain Stated Complaint: Chest pain Time Seen by Provider: 08/02/22 05:28 Source: patient Mode of arrival: ambulatory Limitations: no limitations History of Present Illness HPI narrative: Patient with no known coronary artery disease complaining of chest pain since yesterday 6pm , saturating 98% at room air patient was seen here on 07/10 for same with workup negative pain is sharp in character increases on movement and palpation localized to left 2nd intercostal space Related Data Previous Rx's Medication Instructions Recorded tamsulosin 0.4 mg capsule (Flomax) 0.4 mg PO DAILY #90 caps 02/13/22 clotrimazole-betamethasone 1 1 appl topical BID 30 days #45 05/29/22 %-0.05 % topical cream grams cyclobenzaprine 10 mg tablet 10 mg PO BEDTIME #14 tabs 07/24/22 meloxicam 15 mg tablet 15 mg PO DAILY #14 tabs 07/24/22 ibuprofen 600 mg tablet 600 mg PO Q6H PRN fever or pain 08/02/22 #30 tabs Allergies Allergy/AdvReac Type Severity Reaction Status Date / Time No Known Allergies Allergy Verified 07/24/22 12:42 [No Known Allergies*] Review of Systems Review of Systems: Yes all other systems are reviewed and are negative PMFSH Past Medical History Medical History Hypokalemia Obesity (BMI 30.0-34.9) Surgical History History of arthroscopy of left knee Family History Family History Father Suicide Mother No problems noted. Maternal Grandfather Prostate cancer Paternal Grandfather Hypertension Stroke Social History Social History Housing: Apartment Alcohol intake: current Alcohol intake frequency: holidays/special occasions only Alcohol type: beer Patient Tobacco Use Status: Never used Tobacco Smoked in Last 30 Days: No e-Cigarette/Vaping Use: Never Used Second Hand Smoke Exposure: No Use of substances other than those prescribed or required for medical reasons: No Advance Directives: No Advance Directives Information Provided: No service: No Current occupational status: employed Current occupational exposures/hazards: No Cognitive needs: No Hearing needs: No Vision needs: Yes (Glasses) Physical Exam Vital Signs: Vital Signs: Last Vital Signs Temp 98.2 F 08/02/22 05:09 Pulse 82 08/02/22 05:09 Resp 16 08/02/22 05:09 BP 151/93 H 08/02/22 05:09 Pulse Ox 98 08/02/22 05:09 O2 Del Method Room Air 08/02/22 05:09 BMI result Body Mass Index 27.4 Appearance: Alert. Oriented X3. No acute distress. Eyes: PERRLA, No Nystagmus ENT: Pharynx normal. Oral Mucosa moist Neck: Normal inspection. Neck supple. CVS: Normal heart rate and rhythm. Pulses normal. Tenderness left 2nd intercostal space Respiratory: No respiratory distress. Equal air entry bilateral, no wheezing/rales/rhonchi Abdomen: Soft and nontender. Bowel sounds are present, no mass palpable, no CVA tenderness Skin: Skin warm and dry. Normal skin color. Normal skin turgor. Extremities: No lower extremity edema. No calf tenderness Neuro: Oriented X 3. No motor deficit. Medications Administered Discontinued Medications Generic Name Dose Route Start Last Admin Trade Name Freq PRN Reason Stop Dose Admin Ketorolac Tromethamine 30 mg 08/02/22 05:36 08/02/22 05:50 Ketorolac Tromethamine 30 Mg/Ml Vial IVPUSH 08/02/22 05:37 30 mg ONCE ONE Administration Medical Decision Making Medical Decision Making [facility] Narrative: Patient atypical chest pain localized to 2nd intercostal space on left-sided. EKG and high sensitive troponin negative chest pain it is reproducible on palpation will discharge patient home advised to follow-up with PCP Lab Data MDM Lab Attestation statement: I reviewed the patient's lab results. 08/02/22 04:43 08/02/22 04:43 Labs: Lab Results 08/02/22 08/02/22 08/02/22 Range/Units 04:43 04:43 04:43 WBC 7.1 (4.8-10.8) X10*3/uL RBC 5.58 (4.60-5.80) X10*6/uL Hgb 15.5 (14.0-18.0) g/dl Hct 46.1 (42.0-52.0) % MCV 82.6 (80.0-98.0) fL MCH 27.8 (27.0-33.0) pg MCHC 33.6 (31.0-36.0) g/dl RDW 14.9 (11.0-16.0) % Plt Count 219 (160-400) X10*3/uL MPV 9.9 (9.4-12.4) fL Immature Gran % (Auto) 0.3 (0.0-0.4) % Neut % (Auto) 62.9 (45-73) % Lymph % (Auto) 23.0 (20-40) % Mcleod % (Auto) 10.2 (2-11) % Eos % (Auto) 2.8 (0-4) % Baso % (Auto) 0.8 (0-2) % Lymph # (Auto) 1.6 (1.2-4.9) X10*3/uL Mcleod # (Auto) 0.7 (0.1-1.2) X10*3/uL Eos # (Auto) 0.2 (0.0-0.4) X10*3/uL Baso # (Auto) 0.1 (0.0-0.2) X10*3/uL Abs Immat Gran (auto) 0.02 (0.00-0.03) X10*3/uL Absolute Neuts (auto) 4.5 (2.0-8.3) x10*3/uL Absolute Nucleated RBC 0.000 (0.0-0.012) X10*3/uL Nucleated RBC % (auto) 0.0 (0.0-0.2) /100WBC Sodium 140 (135-145) mmol/L Potassium 3.7 (3.3-5.1) mmol/L Chloride 107 (96-108) mmol/L Carbon Dioxide 25 (22-29) mmol/L Anion Gap 12 (12-20) BUN 11 (9-16) mg/dL Creatinine 1.06 (0.5-1.4) mg/dL Estim Creat Clear Calc 79.7 Estimated GFR > 60 Random Glucose 90 (60-115) mg/dL Calcium 9.4 (8.4-10.2) mg/dL Troponin I High Sens < 2.7 (<3.5-35.0) ng/L Independent Interpretation I performed an independent interpretation of an: EKG Interpretation: Normal sinus rhythm 170 beats per minute normal interval normal axis no acute ST T wave changes no acute ischemia Discharge Plan Discharge Clinical Impression: Costalchondritis Patient Disposition: Home, Self-Care Instructions: Costochondritis (ED) Additional Instructions: Your chest pain is from inflammation of the cartilage Take ibuprofen for pain Follow with PCP Prescriptions: New ibuprofen 600 mg tablet 600 mg PO Q6H PRN (Reason: fever or pain) Qty: 30 0RF No Action clotrimazole-betamethasone 1-0.05 % cream 1 appl topical BID 30 Days Qty: 45 0RF meloxicam 15 mg tablet 15 mg PO DAILY Qty: 14 0RF cyclobenzaprine 10 mg tablet 10 mg PO BEDTIME Qty: 14 0RF tamsulosin [Flomax] 0.4 mg capsule 0.4 mg PO DAILY Qty: 90 2RF Stand Alone Forms: Work/School Release Interventions: ED Discharge Assessment Last Done: 08/02/22 06:27 Discharge Date/Time: 08/02/22 06:27
[2022-08-02] MEDS: Ketorolac Tromethamine 30 MG/ML VIAL IVPUSH (05:50)
[2022-08-02 06:05] VITALS: PULSE 82
== END 2022-08-02 06:27 | disposition home or self-care (01) ==
PROVIDERS: Emergency Provider Internal Medicine; PCP Internal Medicine
DX: M94.0 Chondrocostal junction syndrome [Tietze] (principal)
CPT/HCPCS: 36415; 51798; 80048; 84484; 85025; 93005; 96374; 99212; 99284; 99285; J1885

== ENCOUNTER 2022-08-02 11:35 | Outpatient (AMB) | payer OTHER, SELFPAY ==
--- NOTE | 2022-08-02 11:38 | MHC.OFFVIS ---
Intake Intake Visit Reasons: 6 week follow up Professional Services Specialist Required: Yes Professional Services Specialist Language: Portuguese Allergies No Known Allergies [No Known Allergies*] Allergy (Verified 08/02/22 11:43) Medication List - Last Reconciled 08/02/22 by Nita Wang MD clotrimazole-betamethasone 1-0.05 % 1 appl topical BID 30 days cyclobenzaprine 10 mg PO BEDTIME ibuprofen 600 mg PO Q6H PRN meloxicam 15 mg PO DAILY tamsulosin (Flomax) 0.4 mg PO DAILY HPI HPI Comments History of Present Illness Details Nelson is a 52-year-old male patient who presents to the office for BPH and ED follow-up. The patient had prostate biopsy done on March 2022 for abnormal prostate nodule. Results were benign. The patient had his LV?04/10/22-- with DIETETIC AIDE Paty Davis--She reviewed results with him at that time and is on Flomax, reported improvement in urinary stream with the medication. She also started him on Cialis 5 mg to help with erections. 08/02/22-- The patient is taking Flomax daily with benefits. The patient did not take Cialis 5 mg. He states that he was having some chest pain and palpitations and was in the ER this morning. It was stated that the chest pain is secondary to costalchondritis and the ER doctor gave him some ant-inflammatory and advised to follow-up with his PCP. After leaving the ER he had recurrent chest pains and I advised him to go back to the ER. Evaluation today-- Blood: Negative, leukocytes: negative. Plan: Continue Flomax 0.4 mg. Follow-up after 6 months. [facility] Medical History Hypokalemia Obesity (BMI 30.0-34.9) Surgical History History of arthroscopy of left knee Family History Father Suicide Mother No problems noted. Maternal Grandfather Prostate cancer Paternal Grandfather Hypertension Stroke Social History Housing: Apartment Alcohol intake: current Alcohol intake frequency: holidays/special occasions only Alcohol type: beer Patient Tobacco Use Status: Never used Tobacco e-Cigarette/Vaping Use: Never Used Second Hand Smoke Exposure: No service: No Current occupational status: employed Current occupational exposures/hazards: No Cognitive needs: No Hearing needs: No Vision needs: Yes (Glasses) Review of Systems Const All systems reviewed & are unremarkable except as noted in HPI and below Eyes Reports no additional complaints, Denies change in vision and Denies other visual disturbances Card Denies chest pain at rest, Denies chest pain with activity, Denies edema, Denies irregular heart rhythm, Denies claudication, Denies dyspnea, Denies dyspnea on exertion, Denies orthopnea, Denies paroxysmal nocturnal dyspnea and Denies slow heart rate Resp Denies cough, Denies dyspnea and Denies dyspnea on exertion GI Denies abdominal pain, Denies change in bowel habits, Denies excessive flatus, Denies nausea and Denies vomiting Denies urinary hesitancy, Denies urinary incontinence and Denies urinary urgency Musc Denies abnormal gait, Denies atrophy, Denies deformity and Denies limited range of motion Skin/Breast Denies bleeding lesions, Denies changing lesions and Denies rash Neuro Denies abnormal gait and Denies lack of coordination Office Procedures Post Void Residual Post Residual Void Post Void Residual (PVR): 0 [id number] Void Residual by ultrasound Results AMB Urinalysis, Automated UA Leukoctes Tee/uL Last Edit by Lashonda Chisholm CMA on 08/02/22 11:49 UA Nitrite Last Edit by Lashonda Chisholm CMA on 08/02/22 11:49 UA Urobilinogen 0.2 mg/dL Last Edit by Lashonda Chisholm CMA on 08/02/22 11:49 UA Protein mg/dL Last Edit by Lashonda Chisholm CMA on 08/02/22 11:49 UA pH 7.5 Last Edit by Lashonda Chisholm CMA on 08/02/22 11:49 UA Blood Tee/uL Last Edit by Lashonda Chisholm CMA on 08/02/22 11:49 UA Specific [place] 1.015 Last Edit by Lashonda Chisholm CMA on 08/02/22 11:49 UA Ketone Last Edit by Lashonda Chisholm CMA on 08/02/22 11:49 UA Bilirubin mg/dL Last Edit by Lashonda Chisholm CMA on 08/02/22 11:49 UA Glucose mg/dL Last Edit by Lashonda Chisholm CMA on 08/02/22 11:49 Results Reviewed Results Reviewed: Laboratory Last Values Urine pH (Auto) 7.5 08/02/22 11:40 Specific [place] (Auto) 1.015 08/02/22 11:40 Urine Urobilinogen (Auto) 0.2 mg/dL 08/02/22 11:40 Assessment & Plan Assessment & Plan (1) BPH (benign prostatic hyperplasia): Code(s): N40.0 - Benign prostatic hyperplasia without lower urinary tract symptoms (2) Kidney stone: Code(s): N20.0 - Calculus of kidney (3) Abnormal prostate exam: Code(s): R39.89 - Other symptoms and signs involving the genitourinary system Plan Continue Flomax 0.4 mg. Follow-up after 6 months. Orders: Orders AMB Urinalysis Automated 08/02/22 N20.0 - Calculus of kidney AMB Post Void Residual by ultrasound 08/02/22 N20.0 - Calculus of kidney Medications: Refilled tamsulosin (Flomax) 0.4 mg PO DAILY 90 caps 3RF Patient Instructions: The patient had an opportunity to ask questions regarding treatment plan. All questions were answered. Imaging, Laboratory studies and physical exam results were discussed and reviewed in detail. No major barriers to understanding were identified. The patient expressed understanding and agreement with the above treatment plan. The patient is aware they should contact our office by phone for worsening of their current condition or the appearance of new symptoms. Compliance is encouraged with any medications and followup testing that is ordered. It is a privilege to be allowed the opportunity to participate in the urologic care of your patient. If you have any questions or concerns regarding treatment for the above conditions please do not hesitate to contact me. The office telephone contact is [phone]. This note is constructed in part using voice recognition software. While every effort has been made to ensure accuracy money room teller errors may have been included. Yours sincerely, Nita Wang MD Coding Level of Care Code Est Pt Level 3 (35101) Diagnoses BPH (benign prostatic hyperplasia) N40.0 Kidney stone N20.0 Abnormal prostate exam R39.89 CPT Codes Post Residual Void - PVR CPT Code: 01562-[id number] Void Residual by ultrasound ([id number])
== END 2022-08-02 12:11 | disposition home or self-care (01) ==
LOC: HO.HUSH 11:35
PROVIDERS: PCP Internal Medicine; Visit Provider Urology
DX: N40.0 Benign prostatic hyperplasia without lower urinary tract symptoms (principal); N20.0 Calculus of kidney; R39.89 Other symptoms and signs involving the genitourinary system
CPT/HCPCS: 99213

== ENCOUNTER 2023-03-16 11:19 | Outpatient (AMB) | payer BC, SELFPAY ==
--- NOTE | 2023-03-16 11:37 | A.OFFVIS_ITS ---
Intake Intake Visit Reasons: 6m/BPH Intake Note: Patient presents for a 6 months follow-up on BPH: medication: tamsulosin? Blood thinners: none Director Of Marketing Required: No Accompanied by: Self / Same As Patient Allergies No Known Allergies [No Known Allergies*] Allergy (Verified 03/16/23 11:38) Medication List - Last Reconciled 03/16/23 by Nita Wang MD clotrimazole-betamethasone 1-0.05 % 1 appl topical BID 30 days cyclobenzaprine 10 mg PO BEDTIME ibuprofen 600 mg PO Q6H PRN meloxicam 15 mg PO DAILY nystatin 1 appl topical BID 2 weeks tamsulosin (Flomax) 0.4 mg PO DAILY HPI HPI Comments History of Present Illness Details Nelson is a 52-year-old male patient who presents to the office for BPH and ED follow-up. 03/16/2023-- FU he is on tamsulosin, states voiding without difficulty The patient had prostate biopsy done on March 2022 for abnormal prostate nodule. Results were benign. Review of chart: 08/02/22-- The patient is taking Flomax daily with benefits. The patient did not take Cialis 5 mg. He states that he was having some chest pain and palpitations and was in the ER this morning. It was stated that the chest pain is secondary to costalchondritis and the ER doctor gave him some ant-inflammatory and advised to follow-up with his PCP. After leaving the ER he had recurrent chest pains and I advised him to go back to the ER. Evaluation today-- Blood: Negative, leukocytes: negative. 04/10/22-- with ENGRAVER MACHINE Paty Davis--She reviewe d results with him at that time and is on Flomax, reported improvement in urinary stream with the medication. She also started him on Cialis 5 mg to help with erections Plan: PSA screening fu in 9 months renal US prior to next FU PFSH Medical History Hypokalemia Obesity (BMI 30.0-34.9) Surgical History History of arthroscopy of left knee Family History Father Suicide Mother No problems noted. Maternal Grandfather Prostate cancer Paternal Grandfather Hypertension Stroke Social History Housing: Apartment Alcohol intake: current Alcohol intake frequency: holidays/special occasions only Alcohol type: beer Patient Tobacco Use Status: Never used Tobacco e-Cigarette/Vaping Use: Never Used Second Hand Smoke Exposure: No service: No Current occupational status: employed Current occupational exposures/hazards: No Cognitive needs: No Hearing needs: No Vision needs: Yes (Glasses) Review of Systems Const All systems reviewed & are unremarkable except as noted in HPI and below Eyes Reports no additional complaints, Denies change in vision and Denies other visual disturbances Card Denies chest pain at rest, Denies chest pain with activity, Denies edema, Denies irregular heart rhythm, Denies claudication, Denies dyspnea, Denies dyspnea on exertion, Denies orthopnea, Denies paroxysmal nocturnal dyspnea and Denies slow heart rate Resp Denies cough, Denies dyspnea and Denies dyspnea on exertion GI Denies abdominal pain, Denies change in bowel habits, Denies excessive flatus, Denies nausea and Denies vomiting Denies urinary hesitancy, Denies urinary incontinence and Denies urinary urgency Musc Denies abnormal gait, Denies atrophy, Denies deformity and Denies limited range of motion Skin/Breast Denies bleeding lesions, Denies changing lesions and Denies rash Neuro Denies abnormal gait and Denies lack of coordination Assessment & Plan Assessment & Plan (1) Abnormal prostate exam: Code(s): R39.89 - Other symptoms and signs involving the genitourinary system (2) Renal calculi: Code(s): N20.0 - Calculus of kidney (3) Erectile disorder: Code(s): N52.9 - Male erectile dysfunction, unspecified Plan PSA screening fu in 9 months renal US prior to next FU Orders: Orders US renal BI 7 Months N20.0 - Calculus of kidney PSA,Total (Free>4and<10) 03/16/23 R39.89 - Other symptoms and signs involving the genitourinary system Medications: Refilled tamsulosin (Flomax) 0.4 mg PO DAILY 90 caps 3RF Coding Level of Care Code Est Pt Level 4 (20205) Diagnoses Abnormal prostate exam R39.89 Renal calculi N20.0 Erectile disorder N52.9
== END 2023-03-16 12:07 | disposition home or self-care (01) ==
PROVIDERS: Visit Provider Urology
DX: R39.89 Other symptoms and signs involving the genitourinary system (principal); N20.0 Calculus of kidney; N52.9 Male erectile dysfunction, unspecified
CPT/HCPCS: 99214

== ENCOUNTER → 2023-03-16 11:19 | Outpatient (BNVA) | payer BC, SELFPAY | PROVIDERS: Visit Provider Urology ==

== ENCOUNTER 2023-03-30 09:14 | Outpatient (REF) | payer BC, SELFPAY ==
[2023-03-30 10:29] LABS: PSA,Total (Free>4and<10) 3.89 ng/mL (0.00-4.00)
== END 2023-03-30 09:15 | disposition home or self-care (01) ==
LOC: HO.LAB 09:14
PROVIDERS: PCP Internal Medicine; Visit Provider Urology
DX: Z12.5 Encounter for screening for malignant neoplasm of prostate (principal); R39.89 Other symptoms and signs involving the genitourinary system
CPT/HCPCS: 36415; 84153

== ENCOUNTER 2023-05-18 09:37 | Outpatient (REF) | payer BC, SELFPAY ==
[2023-05-18 10:42] LABS: Alanine Aminotransferase 29 U/L (0-40); Albumin Level 4.5 g/dL (3.5-5.0); Alkaline Phosphatase 52 U/L (39-117); Anion Gap 12 (12-20); Aspartate Amino Transferase 27 U/L (5-37); Bilirubin Total 0.6 mg/dL (0.0-1.0); Blood Urea Nitrogen 15 mg/dL (9-16); Calcium 10.1 mg/dL (8.4-10.2); Carbon Dioxide 26 mmol/L (22-29); Chloride 105 mmol/L (96-108); Cholesterol 184 mg/dL (<200); Estimated Glomerular Filt Rate > 60; Glucose Fasting 82 mg/dL (60-99); HDL Cholesterol 51 mg/dL (>40); LDL Cholesterol Calculated 119 mg/dL (<100); Potassium 4.3 mmol/L (3.3-5.1); Sodium 139 mmol/L (135-145); Total Protein 7.8 g/dL (6.5-8.0); Triglycerides 70 mg/dL (<150)
== END 2023-05-18 09:38 | disposition home or self-care (01) ==
LOC: HO.LAB 09:37
PROVIDERS: PCP Internal Medicine; Visit Provider Internal Medicine
DX: Z00.00 Encounter for general adult medical examination without abnormal findings (principal); E78.5 Hyperlipidemia, unspecified
CPT/HCPCS: 36415; 80053; 80061

== ENCOUNTER 2023-06-04 08:45 | Outpatient (AMB) | payer BC, SELFPAY ==
[2023-06-04 08:47] VITALS: BP 140/80; BMI 30.7
--- NOTE | 2023-06-04 08:47 | MHC.PC.OV ---
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 Required: No Accompanied by: Self / Same As Patient Allergies No Known Allergies [No Known Allergies*] Allergy (Verified 06/04/23 09:11) Medication List - Last Reconciled 06/04/23 by Alexandrea Shankar MD cyclobenzaprine 10 mg PO BEDTIME tamsulosin (Flomax) 0.4 mg PO DAILY Tobacco use date assessed: 06/04/23 Dental Screening Dental Screen Date: 06/04/23 Did you have a dental visit in the last 12 months?: No Did you have a dental problem in the last 6 months where you did not have access to dental care?: No Was dental information given to patient?: Patient has dentist HPI HPI Comments History of Present Illness Details This is a 53-year-old male that comes for his physical exam. Last colonoscopy was 2017. Blood pressure borderline normal to elevated and will be recheck in 3 weeks by nurse navigator. Had exposure to STD and wants to be tested for it. [facility] Medical History Hypokalemia Obesity (BMI 30.0-34.9) Surgical History History of arthroscopy of left knee Family History Father Suicide Mother No problems noted. Maternal Grandfather Prostate cancer Paternal Grandfather Hypertension Stroke Social History Housing: Apartment Alcohol intake: current Alcohol intake frequency: holidays/special occasions only Alcohol type: beer Patient Tobacco Use Status: Never used Tobacco e-Cigarette/Vaping Use: Never Used Second Hand Smoke Exposure: No service: No Current occupational status: employed Current occupational exposures/hazards: No Cognitive needs: No Hearing needs: No Vision needs: Yes (Glasses) Questionnaire PHQ-9 Over the last 2 weeks, how often have you been bothered by any of the following problems? 1. Little interest or pleasure in doing things: not at all 2. Feeling down, depressed, or hopeless: not at all 3. Trouble falling or staying asleep, or sleeping too much: not at all 4. Feeling tired or having little energy: not at all 5. Poor appetite or overeating: not at all 6. Feeling bad about yourself - or that you are a failure or have let yourself or your family down: not at all 7. Trouble concentrating on things, such as reading the newspaper or watching television: not at all 8. Moving or speaking so slowly that other people could have noticed. Or the opposite - being so fidgety or restless that you have been moving around a lot more than usual: not at all 9. Thoughts that you would be better off or of hurting yourself in some way: not at all Total score: 0 Depression Screening Interpretation: Negative Depression Screening Done: Yes 25257 - PHQ-9 Billing: Yes Source: Developed by Drs. Nir Lindo, Alexsandra Fernandez, Vinnie Krueger and colleagues, with an educational murray from [employer]. Thrive Questionnaire Date Thrive assessed: 06/04/23 I am a: Patient What is your living situation today?: I have a steady place to live Within the past 12 months, did the food you bought not last and you didn't have the money to get more?: Never true Within the past 12 months, did you worry whether your food would run out before you got money to buy more?: Never true Do you have trouble paying for medicines?: No Do you have trouble getting transportation to medical appointments?: No Do you have trouble paying your heating and electricity bill?: No Do you have trouble taking care of your child, family member or friend?: No Do you have trouble with day-to-day activities such as bathing, preparing meals, shopping, managing finances, etc.?: No Are you currently unemployed and looking for a job?: No Are you interested in more education?: No Please select the resources that you would like help with: None Currently or been in a relationship where the following occur: no concerns reported THRIVE Score: 0 AUDIT C Alcohol Use Questionnaire (AUDIT-C) 1. How often do you have a drink containing alcohol?: 2-4 times a month 2. How many drinks containing alcohol do you have on a typical day when you are drinking?: 5 or 6 3. How often do you have six or more drinks on one occasion?: Never Total Score: 4 KIKO-7 AMB Questionnaire KIKO-7 Date KIKO - 7 assessed: 06/04/23 Feeling nervous, anxious, or on edge: 0 = Not at all Not being able to stop or control worryin = Not at all Worrying too much about different things: 0 = Not at all Trouble relaxin = Not at all Being so restless that it is hard to sit still: 0 = Not at all Becoming easily annoyed or irritable: 0 = Not at all Feeling afraid as if something awful might happen: 0 = Not at all Total KIKO-7 score (0-4 normal; 5-9 mild; 10-14 moderate; 15-21 severe): 0 Source: Developed by Drs. Nir Lindo, Alexsandra Fernandez, Vinnie Krueger and colleagues, with an educational murray from [employer]. KIKO-7 Assessment Billing KIKO-7 Assessment Tool: KIKO-7 Assessment 43564 Review of Systems Const All systems reviewed & are unremarkable except as noted in HPI and below Eyes Reports no additional complaints, Denies change in vision and Denies other visual disturbances Card Denies chest pain at rest, Denies chest pain with activity, Denies edema, Denies irregular heart rhythm, Denies claudication, Denies dyspnea, Denies dyspnea on exertion, Denies orthopnea, Denies paroxysmal nocturnal dyspnea and Denies slow heart rate Resp Denies cough, Denies dyspnea and Denies dyspnea on exertion GI Denies abdominal pain, Denies change in bowel habits, Denies excessive flatus, Denies nausea and Denies vomiting Denies urinary hesitancy, Denies urinary incontinence and Denies urinary urgency Skin/Breast Reports rash Physical exam (Primary Care) Vital Signs: Last Vital Signs BP 140/80 H 06/04/23 08:47 BMI result Body Mass Index 30.7 Tobacco/Smoking Status: Tobacco use Status Tobacco use date assessed 06/04/23 06/04/23 08:55 Patient Tobacco Use Status Never used Tobacco 06/04/23 08:55 Tobacco use type 07/24/22 10:38 e-Cigarette/Vaping Use Never Used 06/04/23 08:55 PHQ-9: PHQ-9 Score PHQ-9: Total score 0 06/04/23 08:55 Depression Screening Interpretation: Negative Thrive Assessment: Date of Thrive Assessment Date Thrive assessed 06/04/23 06/04/23 08:55 Currently or been in a relationship where the following occur: no concerns reported Const Orientation/consciousness: patient oriented x3 HENNC Head: Yes normal to inspection, Yes normocephalic and Yes atraumatic Ears: external ears normal Eyes General: appearance normal, both eyes and all related structures Eyelids: Yes eyelids normal Conjunctivae: conjunctivae normal Neck Neck: Yes normal visual inspection and Yes supple Resp Effort & Inspection: normal respiratory effort Auscultation: clear to auscultation bilaterally Cardio Jugular venous distension: no JVD Rate: regular rate Rhythm: regular rhythm Heart sounds: S1 normal heart sound present and S2 normal heart sound present GI Inspection: Yes normal to inspection Palpation (GI): Soft to palpation and nontender Auscultation: normal bowel sounds Skin Rashes: rashes noted maculopapular rash bilateral anterior forearm Neuro General: patient oriented x3 and no focal motor deficits Extrem General: Yes full ROM Psych Appearance: grossly normal Assessment and Plan Assessment & Plan (1) Physical exam: Code(s): Z00.00 - Encounter for general adult medical examination without abnormal findings Plan: Repeat in a year. Orders: Orders HIV Ab/Ag Today Z11.3 - Encounter for screening for infections with a predominantly sexual mode of transmission CT NG by PCR Today Z11.3 - Encounter for screening for infections with a predominantly sexual mode of transmission Syphilis Screen Today Z11.3 - Encounter for screening for infections with a predominantly sexual mode of transmission Hepatitis B,C Profile Today Z11.3 - Encounter for screening for infections with a predominantly sexual mode of transmission UA CC w/rflx Micro + Cult Today Z11.3 - Encounter for screening for infections with a predominantly sexual mode of transmission, Z20.2 - Contact with and (suspected) exposure to infections with a predominantly sexual mode of transmission Urine Culture Today Z20.2 - Contact with and (suspected) exposure to infections with a predominantly sexual mode of transmission Medications: New hydrocortisone 1% (Cortisone (hydrocortisone)) 1 appl topical TID 30 days PRN 28.4 grams 0RF skin irritation Coding Level of Care Code Est Pt Prev Care 40-64y(82237) Diagnoses Physical exam Z00.00 Additional Codes KIKO-7 Assessment Billing - KIKO-7 Assessment Tool: KIKO-7 Assessment 98183 ([id number]) Time Spent (min) 32
[2023-06-04 09:43] VITALS: BP 140/80
== END 2023-06-04 09:22 | disposition home or self-care (01) ==
PROVIDERS: Visit Provider Internal Medicine
DX: Z00.00 Encounter for general adult medical examination without abnormal findings (principal)
CPT/HCPCS: 99396

== ENCOUNTER 2023-06-04 09:34 | Outpatient (REF) | payer BC, SELFPAY ==
[2023-06-04 11:16] LABS: Syphilis Screen Nonreactive (Nonreactive)
[2023-06-04 11:20] LABS: HBc Num1 0.09 S/CO (0.00-0.79); HBsAGNum1 0.41 S/CO (0.00-0.99); HIV AB/AG Nonreactive (Nonreactive); HIV Num 1 0.05 S/CO (0.00-0.99); Hepatitis B Core Antibody Nonreactive (Nonreactive); Hepatitis B Surface Antigen Negative (Negative); ~HepC Num1 0.19 S/CO (0.00-0.79); ~Hepatitis B Surface Antibody REACTIVE (Nonreactive); ~Hepatitis C Antibody Nonreactive (Nonreactive)
[2023-06-04 11:49] LABS: Appearance Urine Clear; Color Urine Yellow; Glucose Urine UA Negative (Negative); Leukocyte Esterase Urine Negative (Negative); Nitrite Urine Negative (Negative); Specific Gravity - Urine 1.025 (1.005-1.025); Urine Blood Negative (Negative); Urine Ketones Negative (Negative); Urine Protein Negative (Neg-Trace)
[2023-06-04 14:19] LABS: CT PCR NOT DETECTED (Not Detect.); NG PCR NOT DETECTED (Not Detect.)
== END 2023-06-04 09:35 | disposition home or self-care (01) ==
LOC: HO.LAB 09:34
PROVIDERS: PCP Internal Medicine; Visit Provider Internal Medicine
DX: Z11.4 Encounter for screening for human immunodeficiency virus [HIV] (principal); Z20.2 Contact with and (suspected) exposure to infections with a predominantly sexual mode of transmission; R82.90 Unspecified abnormal findings in urine
CPT/HCPCS: 0353U; 81003; 86704; 86706; 86780; 86803; 87086; 87340; 87389

== ENCOUNTER 2023-10-19 08:58 | Outpatient (REF) | payer BC, SELFPAY ==
--- NOTE | ~2023-10-19 | US_ITS ---
EXAMINATION: US KIDNEYS BILATERAL CLINICAL INFORMATION: Renal calculus. COMPARISON: CT abdomen and pelvis 01/17/2022. TECHNIQUE: Real-time imaging of the kidneys. FINDINGS: RIGHT KIDNEY: 10.6 x 5.8 x 6.1 cm (SAG x AP x TRV). The kidney is normal in size, contour, and echogenicity. Renal cortical thickness is normal. No renal calculi or hydronephrosis. 1.0 cm simple cyst in the lower pole. No imaging follow-up is recommended. LEFT KIDNEY: 10.2 x 6.1 x 5.7 cm (SAG x AP x TRV). The kidney is normal in size, contour, and echogenicity. Renal cortical thickness is normal. No renal calculi or hydronephrosis. 1.4 cm thinly septated cyst in the upper pole. No imaging follow-up is recommended. US/US renal BI IMPRESSION: No visible nephrolithiasis. No hydronephrosis. Electronically signed by: Kevin Toro MD 11/07/2023 10:20 AM EDT
== END 2023-10-19 08:59 | disposition home or self-care (01) ==
LOC: HO.US 08:58
PROVIDERS: PCP Internal Medicine; Visit Provider Urology
DX: N20.0 Calculus of kidney (principal)
CPT/HCPCS: 76775

== ENCOUNTER 2023-12-14 13:04 | Outpatient (AMB) | payer BC, SELFPAY ==
--- NOTE | 2023-12-14 13:08 | MHC.OFFVIS ---
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 Last visit 03/16/2023-- he is on tamsulosin, states voiding without difficultyThe patient had prostate biopsy done on March 2022 for abnormal prostate nodule. Results were benign. PSA 50888-0.89 ng/mL. Renal ultrasound 10/19/2023-negative for recurrent nephrolithiasis. Will continue to monitor PSA. PSA in 3 months. Review of chart: 08/02/22-- The patient is taking Flomax daily with benefits. The patient did not take Cialis 5 mg. He states that he was having some chest pain and palpitations and was in the ER this morning. It was stated that the chest pain is secondary to costalchondritis and the ER doctor gave him some ant-inflammatory and advised to follow-up with his PCP. After leaving the ER he had recurrent chest pains and I advised him to go back to the ER. Evaluation today-- Blood: Negative, leukocytes: negative. 04/10/22-- with [facility] Paty Davis--She reviewed results with him at that time and is on Flomax, reported improvement in urinary stream with the medication. She also started him on Cialis 5 mg to help with erections [facility], [facility] Medical History Hypokalemia Obesity (BMI 30.0-34.9) Surgical History History of arthroscopy of left knee Family History Father Suicide Mother No problems noted. Maternal Grandfather Prostate cancer Paternal Grandfather Hypertension Stroke Social History Housing: Apartment Alcohol intake: current Alcohol intake frequency: holidays/special occasions only Alcohol type: beer Patient Tobacco Use Status: Never used Tobacco e-Cigarette/Vaping Use: Never Used Second Hand Smoke Exposure: No service: No Current occupational status: employed Current occupational exposures/hazards: No Cognitive needs: No Hearing needs: No Vision needs: Yes (Glasses) Review of Systems Const All systems reviewed & are unremarkable except as noted in HPI and below Reports no additional complaints Eyes Reports no additional complaints ENT Reports no additional complaints Card Reports no additional complaints Resp Reports no additional complaints GI Reports no additional complaints Reports as per HPI Musc Reports no additional complaints Skin/Breast Reports system reviewed and no additional complaints, except as documented Neuro Reports no additional complaints Psych Reports no additional complaints Endo Reports no additional complaints Riley/Lymph Reports no additional complaints Aller/Immun Reports no additional complaints Office Procedures Cystoscopy ENTERED IN ERROR, PATIENT DID NOT HAVE CYSTOSCOPY PROCEDURE Procedure code (CPT) selection complete Post Void Residual Post Residual Void Post Void Residual (PVR): 0 [id number] Void Residual by ultrasound Office Meds lidocaine HCl 2 % mucosal jelly in applicator Performing Provider: Nita Wang MD [facility] Documented (not given) by: Derrick Renner LPN on 12/14/23 13:52 Reason Not Given: Not Medically Necessary naproxen 500 mg tablet Performing Provider: Nita Wang MD Performing [facility] Documented (not given) by: Derrick Renner LPN on 12/14/23 13:52 Reason Not Given: Not Medically Necessary ciprofloxacin HCl 500 mg tablet Performing Provider: Nita Wang MD Performing [facility] Documented (not given) by: Derrick Renner LPN on 12/14/23 13:52 Reason Not Given: Not Medically Necessary Results AMB Urinalysis, Automated UA Leukoctes 0 Tee/uL Last Edit by LAUREL De La Garza on 12/14/23 13:28 UA Nitrite Last Edit by LAUREL De La Garza on 12/14/23 13:28 UA Urobilinogen 0.2 mg/dL Last Edit by LAUREL De La Garza on 12/14/23 13:28 UA Protein 15 mg/dL Last Edit by LAUREL De La Garza on 12/14/23 13:28 UA pH 6.0 Last Edit by LAUREL De La Garza on 12/14/23 13:28 UA Blood Tee/uL Last Edit by LAUREL De La Garza on 12/14/23 13:28 UA Specific [place] 1.015 Last Edit by LAUREL De La Garza on 12/14/23 13:28 UA Ketone Negative Last Edit by LAUREL De La Garza on 12/14/23 13:28 UA Bilirubin 0 mg/dL Last Edit by LAUREL De La Garza on 12/14/23 13:28 UA Glucose 0 mg/dL Last Edit by LAUREL De La Garza on 12/14/23 13:28 Results Reviewed Results Reviewed: Laboratory Last Values Urine pH (Auto) 6.0 12/14/23 13:27 Specific [place] (Auto) 1.015 12/14/23 13:27 Urine Protein (Auto) 15 mg/dL 12/14/23 13:27 Glucose (UA)(Auto) 0 mg/dL 12/14/23 13:27 Urine Ketones (Auto) Negative 12/14/23 13:27 Urine Bilirubin (Auto) 0 mg/dL 12/14/23 13:27 Urine Urobilinogen (Auto) 0.2 mg/dL 12/14/23 13:27 Leukocyte Esterase (Auto) 0 Tee/uL 12/14/23 13:27 Date of Service: 10/19/23 US KIDNEYS BILATERAL CLINICAL INFORMATION: Renal calculus. COMPARISON: CT abdomen and pelvis 01/17/2022. TECHNIQUE: Real-time imaging of the kidneys. FINDINGS: RIGHT KIDNEY: 10.6 x 5.8 x 6.1 cm (SAG x AP x TRV). The kidney is normal in size, contour, and echogenicity. Renal cortical thickness is normal. No renal calculi or hydronephrosis. 1.0 cm simple cyst in the lower pole. No imaging follow-up is recommended. LEFT KIDNEY: 10.2 x 6.1 x 5.7 cm (SAG x AP x TRV). The kidney is normal in size, contour, and echogenicity. Renal cortical thickness is normal. No renal calculi or hydronephrosis. 1.4 cm thinly septated cyst in the upper pole. No imaging follow-up is recommended. IMPRESSION: No visible nephrolithiasis. No hydronephrosis. Date of Service: 01/17/22 EXAMINATION: CT ABDOMEN AND PELVIS WITHOUT CONTRAST? CLINICAL INFORMATION: Left flank and back pain since Sunday, now worse? COMPARISON: None? FINDINGS: LUNG BASES: The visualized lung bases are unremarkable.? LIVER, GALLBLADDER, AND BILIARY TREE: The liver is normal in size, shape, and attenuation. No focal hepatic lesion or biliary ductal dilatation is present. The gallbladder is unremarkable with no evidence of radiopaque gallstones, gallbladder wall thickening, or obvious pericholecystic inflammatory changes.? PANCREAS: Unremarkable.? SPLEEN: Unremarkable.? ADRENAL GLANDS: Unremarkable.? KIDNEYS AND URETERS: Punctate 1 mm nonobstructing right lower pole renal calculus. No other radiodense urinary tract calculi. No hydronephrosis. Small 1 cm low-density benign/simple appearing left posterior upper pole renal cyst. No further follow-up required. No other renal lesion. No perinephric stranding. BLADDER: Mildly diffusely thick-walled and moderately distended. No focal bladder wall thickening.? GASTROINTESTINAL TRACT: The small and large bowel are unremarkable. The appendix is unremarkable. No ascites or free air. ABDOMINAL WALL: Possible tiny fat-containing inguinal hernias. Tiny fat-containing umbilical hernia. LYMPH NODES: No lymphadenopathy. VASCULAR: Normal caliber abdominal aorta. PELVIC VISCERA: Prostate gland is enlarged measuring 5.3 x 4.4 x 5 cm in size slightly indenting into the bladder base.? OSSEOUS STRUCTURES: No acute fracture or suspicious osseous lesion. Mild multilevel degenerative disc disease in the thoracic spine. IMPRESSION: 1.? Punctate 1 mm nonobstructing right lower pole renal calculus. No other radiodense urinary tract calculi. No hydronephrosis. 2.? No acute intra-abdominal process. 3.? Prostatomegaly. Slightly thick-walled appearance of the urinary bladder. Correlate clinically with signs or symptoms of chronic bladder outlet obstruction. ? Assessment & Plan Assessment & Plan (1) Abnormal prostate exam: Code(s): R39.89 - Other symptoms and signs involving the genitourinary system Category: Medical (2) Renal calculi: Code(s): N20.0 - Calculus of kidney Category: Medical (3) Erectile disorder: Code(s): N52.9 - Male erectile dysfunction, unspecified Category: Medical Plan PSA 10093-7.89 ng/mL. Renal ultrasound 10/19/2023-negative for recurrent nephrolithiasis. Will continue to monitor PSA. PSA in 3 months. Orders: Orders PSA,Total (Free>4and<10) 3 Months N40.1 - Benign prostatic hyperplasia with lower urinary tract symptoms AMB Urinalysis Automated 12/14/23 Z13.9 - Encounter for screening, unspecified AMB Cystoscopy 12/14/23 N20.0 - Calculus of kidney, N28.1 - Cyst of kidney, acquired Coding Level of Care Code Est Pt Level 4 (43567) Diagnoses Abnormal prostate exam R39.89 Renal calculi N20.0 Erectile disorder N52.9 CPT Codes Post Residual Void - PVR CPT Code: [id number] Void Residual by ultrasound ([id number])
== END 2023-12-14 13:54 | disposition home or self-care (01) ==
LOC: HO.HUSH 13:04
PROVIDERS: PCP Internal Medicine; Visit Provider Urology
DX: N20.0 Calculus of kidney (principal); N28.1 Cyst of kidney, acquired; Z13.9 Encounter for screening, unspecified
CPT/HCPCS: 99214

== ENCOUNTER → 2023-12-14 13:04 | Outpatient (BNVA) | payer BC, SELFPAY | PROVIDERS: PCP Internal Medicine; Visit Provider Urology | DX: N20.0 Calculus of kidney (principal); R39.89 Other symptoms and signs involving the genitourinary system; N52.9 Male erectile dysfunction, unspecified | CPT/HCPCS: 51798; 81003 ==

== ENCOUNTER 2024-04-11 11:24 | Outpatient (REF) | payer BC, SELFPAY ==
--- OUTSIDE RECORDS SUMMARY | 2024-04-11 12:29 | XMS_ITS | Clinical Summary ---
Author Organization [facility] ity Address [address] [place] [address] Care Team Providers Care Hand Surgeon Name Role Phone Alexandrea Shankar MD Primary Care Provider [phone] Surgical History Surgery Date Site/Laterality Comments OTHER SURGICAL HISTORY PROCEDURE: DENIES PREVIOUS SURGERY Family History Medical History Relation Name Comments Other cancer Maternal Grandfather leukemi a Hypertension Mother Other: no DM Other 1 Heart attack Paternal Grandfather Hypertension Paternal Grandfather Stroke Paternal Grandfather Relation Name Status Comments Maternal Grandfather Mother Other 1 Other 2 Paternal Grandfather Social History Tobacco Use Types Packs/Day Years Used Date Smoking Tobacco: Never Smokeless Tobacco: Never Alcohol Use Standard Drinks/Week Comments Yes 0 (1 standard drink = 0.6 oz pur e alcohol) Sex and Gender Information Value Date Recorded Sex Assigned at Not on file Gender Identity Not on file Sexual Orientation Not on file Obstetrics History Plan of Treatment Health Maintenance Due Date Last Done Comments Hepatitis B Vaccines (1 of 3 - 19+ 3-dose series) 1989 Zoster Vaccines (1 of 2) 01/02/2020 Cholesterol Screening (Lipid Panel) 02/05/2022 Colorectal Cancer Screening: Colonoscopy 02/05/2022 Depression Screening 02/05/2022 HIV Screening 02/05/2022 Hepatitis C Screening 02/05/2022 Social Influencers of Health Screening 02/05/2022 DTaP,Tdap,and Td Vaccines (2 - Td or Tdap) 02/18/2023 02/18/2013 COVID-19 Vaccine ( - 2023-2 5 season) 2023 Influenza Vaccine (#1) 2023 5, 02/18/2013 HIB Vaccines Aged Out No longer eligi ble based on patient's age to complete this topic HPV Vaccines Aged Out No longer eligi ble based on patient's age to complete this topic Hepatitis A Vaccines Aged Out No long er eligible based on patient's age to complete this topic IPV Vaccines Aged Out No longer eligi ble based on patient's age to complete this topic MMR Vaccines Aged Out No longer eligi ble based on patient's age to complete this topic Meningococcal ACWY Vaccine Aged Out N o longer eligible based on patient's age to complete this topic Pneumococcal Vaccine: Pediatrics (0 to 5 Years) and At-Risk Patients (6 to 64 Years) Aged Out No longer eligible b ased on patient's age to complete this topic RSV Immunization Patients Under 20 months Aged Out No longer eligible b ased on patient's age to complete this topic Varicella Vaccines Aged Out No longer eligible based on patient's age to complete this topic Care Teams Hand Surgeon Relationship Specialty Start Date End Date Alexandrea Shankar MD [address] [place] [address] , [address] [facility] Physician Associ D/B/A: [facility] FABIOLA Staples PCP - General 02/14/16
[2024-04-11 13:04] LABS: PSA,Total (Free>4and<10) 3.98 ng/mL (0.00-4.00)
== END 2024-04-11 11:25 | disposition home or self-care (01) ==
LOC: HO.LAB 11:24
PROVIDERS: PCP Internal Medicine; Visit Provider Urology
DX: N40.1 Benign prostatic hyperplasia with lower urinary tract symptoms (principal); Z12.5 Encounter for screening for malignant neoplasm of prostate
CPT/HCPCS: 36415; 84153

== ENCOUNTER 2024-04-25 15:34 | Outpatient (AMB) | payer BC, SELFPAY ==
--- OUTSIDE RECORDS SUMMARY | 2024-04-25 15:36 | XMS_ITS | Clinical Summary ---
Author Organization [facility] it Address [address] [place] [address] Care Team Providers Care Acura Sales Consultant Name Role Phone Alexandrea Shankar MD Primary Care Provider [phone] Surgical History Surgery Date Site/Laterality Comments OTHER [...] Recorded Sex Assigned at Not on file Legal Sex Male 4:55 AM EST Gender Identity Not on file Sexual Orientation Not on file Obstetrics History Plan of Treatment Health Maintenance Due Date Last Done Comments Hepatitis B Vaccines (1 of 3 - 19+ 3-dose series) 1989 Pneumococcal Vaccine: 50+ Years (1 of 1 - PCV) 01/02/2020 Zoster Vaccines (1 of 2) 01/02/2020 Cholesterol Screening (Lipid Panel) 02/05/2022 Colorectal Cancer Screening: Colonoscopy 02/05/2022 Depression Screening 02/05/2022 HIV Screening 02/05/2022 Hepatitis C Screening 02/05/2022 Social Influencers of Health Screening 02/05/2022 DTaP,Tdap,and Td Vaccines (2 - Td or Tdap) 02/18/2023 02/18/2013 COVID-19 Vaccine (1 - 2023-2 5 season) 2023 Influenza Vaccine [...] patient's age to complete this topic Meningococcal B Vacine Aged Out No lo nger eligible based on patient's age to complete [...] age to complete this topic Care Teams Acur[employer] Sales Consultant Relationship Specialty Start Date End Date Alexandrea Shankar MD [address] [place] [address] , [address] [facility]ician [facility] D/B/A: [facility] FABIOLA Staples PCP - General 02/14/16
--- NOTE | 2024-04-25 16:15 | A.OFFVIS_ITS ---
Intake Visit Reasons: follow up/PSA Intake Note: Patient is Present for Follow Up Urology Medication: Tamsulosin Antibiotic Allergies: None Blood Thinners: None Last PVR:0ML Todays PVR:0ml Allergies No Known Allergies [No Known Allergies*] Allergy (Verified 12/14/23 13:09) Medication List - Last Reconciled 04/25/24 by Nita Wang MD cyclobenzaprine 10 mg PO BEDTIME hydrocortisone 1% (Cortisone (hydrocortisone)) 1 appl topical TID PRN 30 days tamsulosin (Flomax) 0.4 mg PO DAILY HPI Comments Details: 04/25/24--Paul is follow-up due to BPH and elevated PSA. I have reviewed with him repeat PSA 04/11/2024 is 3.98 is stable. He takes tamsulosin for obstructive urinary symptoms. We will continue to monitor PSA. Family history maternal grandfather with prostate cancer. He states his father has no history of prostate cancer. 12/14/23--Nelson is a 52-year-old male patient who presents to the office for kidney stones, BPH and ED follow-up. Last visit 03/16/2023-- he is on tamsulosin, states voiding without difficulty The patient had prostate biopsy done on March 2022 for abnormal prostate nodule. Results were benign. PSA 28886-6.89 ng/mL. Renal ultrasound 10/19/2023-negative for recurrent nephrolithiasis. Will continue to monitor PSA. PSA in 3 months. 08/02/22--The patient is taking Flomax daily with benefits. The patient did not take Cialis 5 mg. He states that he was having some chest pain and palpitations and was in the ER this morning. It was stated that the chest pain is secondary to costalchondritis and the ER doctor gave him some ant-inflammatory and advised to follow-up with his PCP. After leaving the ER he had recurrent chest pains and I advised him to go back to the ER. Evaluation today-- Blood: Negative, leukocytes: negative. 04/10/22-- with ASSISTANT FLOOR COVERING PRINTER Paty Davis--She reviewed results with him at that time and is on Flomax, reported improvement in urinary stream with the medication. She also started him on Cialis 5 mg to help with erections [facility] Medical History Hypokalemia Obesity (BMI 30.0-34.9) Surgical History History of arthroscopy of left knee Family History Father Suicide Mother No problems noted. Maternal Grandfather Prostate cancer Paternal Grandfather Hypertension Stroke Social History Housing: Apartment Alcohol intake: current Alcohol intake frequency: holidays/special occasions only Alcohol type: beer Patient Tobacco Use Status: Never used Tobacco e-Cigarette/Vaping Use: Never Used Second Hand Smoke Exposure: No service: No Current occupational status: employed Current occupational exposures/hazards: No Cognitive needs: No Hearing needs: No Vision needs: Yes (Glasses) Review of Systems Const All systems reviewed & are unremarkable except as noted in HPI and below Reports no additional complaints Eyes Reports no additional complaints ENT Reports no additional complaints Card Reports no additional complaints Resp Reports no additional complaints GI Reports no additional complaints Reports as per HPI Musc Reports no additional complaints Skin/Breast Reports system reviewed and no additional complaints, except as documented Neuro Reports no additional complaints Psych Reports no additional complaints Endo Reports no additional complaints Riley/Lymph Reports no additional complaints Aller/Immun Reports no additional complaints Office Procedures Post Void Residual Post Residual Void Post Void Residual (PVR): 0 11619-[id number] Void Residual by ultrasound Results AMB Urinalysis, Automated UA Leukoctes Tee/uL Last Edit by YULISSA Adan on 04/25/24 16:28 UA Nitrite Negative Last Edit by YULISSA Adan on 04/25/24 16:28 UA Urobilinogen 0.2 mg/dL Last Edit by YULISSA Adan on 04/25/24 16:2 8 UA Protein 15 mg/dL Last Edit by YULISSA Adan on 04/25/24 16:28 UA pH 6.0 Last Edit by YULISSA Adan on 04/25/24 16:28 UA Blood 0 Tee/uL Last Edit by YULISSA Adan on 04/25/24 16:28 UA Specific [place] 1.015 Last Edit by Lashonda Jason, RMA on 04/25/24 16: 28 UA Ketone Negative Last Edit by Lashonda Jason, RMA on 04/25/24 16:28 UA Bilirubin 0 mg/dL Last Edit by Lashonda Jason, RMA on 04/25/24 16:28 UA Glucose 0 mg/dL Last Edit by Lashonda Jason, RMA on 04/25/24 16:28 Results Reviewed Results Reviewed: Laboratory Last Values Urine pH (Auto) 6.0 04/25/24 16:26 Specific [place] (Auto) 1.015 04/25/24 16:26 Urine Protein (Auto) 15 mg/dL 04/25/24 16:26 Glucose (UA)(Auto) 0 mg/dL 04/25/24 16:26 Urine Ketones (Auto) Negative 04/25/24 16:26 Urine Blood (Auto) 0 Tee/uL 04/25/24 16:26 Urine Nitrite (Auto) Negative 04/25/24 16:26 Urine Bilirubin (Auto) 0 mg/dL 04/25/24 16:26 Urine Urobilinogen (Auto) 0.2 mg/dL 04/25/24 16:26 Assessment & Plan Assessment & Plan (1) BPH with elevated PSA: Code(s): N40.0 - Benign prostatic hyperplasia without lower urinary tract symptoms; R97.20 - Elevated prostate specific antigen [PSA] Category: Medical (2) History of kidney stones: Code(s): Z87.442 - Personal history of urinary calculi Category: Medical Plan PSA in 6 months. Continue tamsulosin Orders: Orders AMB Urinalysis Automated Today Z13.9 - Encounter for screening, unspecified AMB Post Void Residual by ultrasound Today N40.1 - Benign prostatic hyperplasia with lower urinary tract symptoms PSA,Total (Free>4and<10) 5 Months N40.0 - Benign prostatic hyperplasia without lower urinary tract symptoms, R97.20 - Elevated prostate specific antigen [PSA] Medications: Refilled tamsulosin (Flomax) 0.4 mg PO DAILY 90 caps 3RF Patient Instructions: The patient had an opportunity to ask questions regarding treatment plan. The patient expressed understanding and agreement with the above treatment plan. The patient is aware they should contact our office by phone for worsening of their current condition or the appearance of new symptoms. Compliance is encouraged with any medications and followup testing that is ordered. It is a privilege to be allowed the opportunity to participate in the urologic care of your patient. If you have any questions or concerns regarding treatment for the above conditions please do not hesitate to contact me. The office telephone contact is [phone]. This note is constructed in part using voice recognition software. While every effort has been made to ensure accuracy university dean errors may have been included. Yours sincerely, Nita Wang MD Coding Level of Care Code Est Pt Level 3 (52827) Diagnoses BPH with elevated PSA N40.0; R97.20 History of kidney stones Z87.442 CPT Codes Post Residual Void - PVR CPT Code: 42629-Szgo Void Residual by ultrasound ([id number])
== END 2024-04-25 16:56 | disposition home or self-care (01) ==
PROVIDERS: PCP Internal Medicine; Visit Provider Urology
DX: N40.0 Benign prostatic hyperplasia without lower urinary tract symptoms (principal); R97.20 Elevated prostate specific antigen [PSA]; Z87.442 Personal history of urinary calculi; Z13.9 Encounter for screening, unspecified
CPT/HCPCS: 99213

== ENCOUNTER → 2024-04-25 15:34 | Outpatient (BNVA) | payer BC, SELFPAY | PROVIDERS: PCP Internal Medicine; Visit Provider Urology | DX: R97.20 Elevated prostate specific antigen [PSA] (principal); N40.0 Benign prostatic hyperplasia without lower urinary tract symptoms; Z87.442 Personal history of urinary calculi | CPT/HCPCS: 51798; 81003 ==

== ENCOUNTER 2024-06-10 07:38 | Outpatient (AMB) | payer BC, SELFPAY ==
--- OUTSIDE RECORDS SUMMARY | 2024-06-10 07:42 | XMS_ITS | Clinical Summary ---
Author Organization [facility] it Address [address] [place] [address] Care Team Providers Care Horse Riding Coach Or Instructor Name Role Phone Alexandrea Shankar MD Primary Care Provider [phone] Surgical History Surgery Date Site/Laterality Comments OTHER [...] age to complete this topic Meningococcal B Vaccine Aged Out No l onger eligible based on patient's age to complete [...] age to complete this topic Care Teams Horse Riding Coach Or Instructor Relationship Specialty Start Date End Date Alexandrea Shankar MD [address] [place] [address] , [address] [facility] FABIOLA Staples PCP - General 02/14/16
[2024-06-10 07:45] VITALS: BP 130/80; BMI 31.0
--- NOTE | 2024-06-10 07:45 | A.OFFPC_ITS ---
Vital Signs 06/10/24 07:45 Height 5 ft 6 in Weight 192 lb BMI 31.0 BP 130/80 Blood Pressure Location Lt brachial Position Sitting Intake Visit Reasons: physical exam Intake Note: Patient here for a physical exam Management Architect Required: No Accompanied by: Self / Same As Patient Allergies No Known Allergies [No Known Allergies*] Allergy (Verified 06/10/24 07:56) Medication List - Last Reconciled 06/10/24 by Alexandrea Shankar MD tamsulosin (Flomax) 0.4 mg PO DAILY Tobacco use date assessed: 06/10/24 Dental Screening Dental Screen Date: 06/10/24 Did you have a dental visit in the last 12 months?: Yes Did you have a dental problem in the last 6 months where you did not have access to dental care?: No Was dental information given to patient?: Patient has dentist HPI HPI Comments History of Present Illness Details The patient is a 54-year-old male presenting for an annual physical examination and tetanus vaccination. His medical history includes hypercholesterolemia and BPH, with treatment managed by tamsulosin. He reports blood pressure is controlled and unchanged medications. The last colonoscopy, conducted in 2018, was normal, and follow-up is recommended in 2028. He has not experienced symptoms of chest pain or dyspnea and has no noted allergies. He complains of a ventral hernia in abdomen that bothers him. There is a family history suggestive of anxiety-related hypertension in his mother, though she is currently asymptomatic. The patient?s lifestyle includes regular physical activity initiated two months prior, resulting in muscle hypertrophy, with additional diagnostic imaging planned. He prefers a healthy lifestyle, abstai valeria from smoking and drinking alcohol sparingly. - Colonoscopy conducted in 2018 with nex t recommended in 2028. - Tetanus immunization last given in , booster due and agreed for today's administration. - Laboratory tests for cholesterol pendi ng, were sent for completion within the next three months. - Regular exercise regime initiated; mus seble development monitored. [facility] Medical History Hypokalemia Obesity (BMI 30.0-34.9) Surgical History History of arthroscopy of left knee Family History Father Suicide Mother No problems noted. Maternal Grandfather Prostate cancer Paternal Grandfather Hypertension Stroke Social History Housing: Apartment Alcohol intake: current Alcohol intake frequency: holidays/special occasions only Alcohol type: beer Patient Tobacco Use Status: Never used Tobacco e-Cigarette/Vaping Use: Never Used Second Hand Smoke Exposure: No service: No Current occupational status: employed Current occupational exposures/hazards: No Cognitive needs: No Hearing needs: No Vision needs: Yes (Glasses) Questionnaire PHQ-9 Over the last 2 weeks, how often have you been bothered by any of the following problems? 1. Little interest or pleasure in doing things: not at all 2. Feeling down, depressed, or hopeless: not at all 3. Trouble falling or staying asleep, or sleeping too much: not at all 4. Feeling tired or having little energy: not at all 5. Poor appetite or overeating: not at all 6. Feeling bad about yourself - or that you are a failure or have let yourself or your family down: not at all 7. Trouble concentrating on things, such as reading the newspaper or watching television: not at all 8. Moving or speaking so slowly that other people could have noticed. Or the opposite - being so fidgety or restless that you have been moving around a lot more than usual: not at all 9. Thoughts that you would be better off or of hurting yourself in some way: not at all Total score: 0 Depression Screening Interpretation: Negative Depression Screening Done: Yes 33795 - PHQ-9 Billing: Yes Source: Developed by Drs. Nir Lindo, Alexsandra Fernandez, Vinnie Krueger and colleagues, with an educational murray from [employer]. Thrive Questionnaire Date Thrive assessed: 06/10/24 I am a: Patient What is your living situation today?: I have a steady place to live Within the past 12 months, did the food you bought not last and you didn't have the money to get more?: Never true Within the past 12 months, did you worry whether your food would run out before you got money to buy more?: Never true Do you have trouble paying for medicines?: No Do you have trouble getting transportation to medical appointments?: No Do you have trouble paying your heating and electricity bill?: No Do you have trouble taking care of your child, family member or friend?: No Do you have trouble with day-to-day activities such as bathing, preparing meals, shopping, managing finances, etc.?: No Are you currently unemployed and looking for a job?: No Are you interested in more education?: Yes Please select the resources that you would like help with: Education Currently or been in a relationship where the following occur: No concerns reported THRIVE Score: 0 AUDIT C Alcohol Use Questionnaire (AUDIT-C) 1. How often do you have a drink containing alcohol?: Monthly or less 2. How many drinks containing alcohol do you have on a typical day when you are drinking?: 1 or 2 3. How often do you have six or more drinks on one occasion?: Never Total Score: 1 Score Reviewed/Action Taken: No KIKO-7 AMB Questionnaire KIKO-7 Date KIKO - 7 assessed: 06/10/24 Feeling nervous, anxious, or on edge: 0 = Not at all Not being able to stop or control worryin = Not at all Worrying too much about different things: 0 = Not at all Trouble relaxin = Not at all Being so restless that it is hard to sit still: 0 = Not at all Becoming easily annoyed or irritable: 0 = Not at all Feeling afraid as if something awful might happen: 0 = Not at all Total KIKO-7 score (0-4 normal; 5-9 mild; 10-14 moderate; 15-21 severe): 0 Source: Developed by Drs. Nir Lindo, Alexsandra Fernandez, Vinnie Krueger and colleagues, with an educational murray from [employer]. KIKO-7 Assessment Billing KIKO-7 Assessment Tool: KIKO-7 Assessment 81828 Review of Systems Const All systems reviewed & are unremarkable except as noted in HPI and below Card Denies chest pain at rest, Denies chest pain with activity, Denies edema, Denies irregular heart rhythm, Denies claudication, Denies dyspnea, Denies dyspnea on exertion, Denies orthopnea, Denies paroxysmal nocturnal dyspnea and Denies slow heart rate Resp Denies cough, Denies dyspnea and Denies dyspnea on exertion GI Denies abdominal pain, Denies change in bowel habits, Denies excessive flatus, Denies nausea and Denies vomiting Denies urinary hesitancy, Denies urinary incontinence and Denies urinary urgency Musc Denies abnormal gait, Denies atrophy, Denies deformity and Denies limited range of motion Skin/Breast Denies bleeding lesions, Denies changing lesions and Denies rash Neuro Denies abnormal gait, Denies behavioral changes, Denies confusion and Denies lack of coordination Psych Denies behavioral changes and Denies confusion Physical exam (Primary Care) Vital Signs: Last Vital Signs BP 130/80 06/10/24 07:45 BMI result Body Mass Index 31.0 BMI Assessment/Plan discussion: High BMI High, discussed plan: lifestyle, weight reduction, dietary and physical activity Tobacco/Smoking Status: Tobacco use Status Tobacco use date assessed 06/10/24 06/10/24 07:48 Patient Tobacco Use Status Never used Tobacco 06/10/24 07:48 Tobacco use type 11/18/23 07:07 e-Cigarette/Vaping Use Never Used 06/10/24 07:48 PHQ-9: PHQ-9 Score PHQ-9: Total score 0 06/10/24 08:03 Depression Screening Interpretation: Negative Thrive Assessment: Date of Thrive Assessment Date Thrive assessed 06/10/24 06/10/24 07:48 Currently or been in a relationship where the following occur: No concerns reported Const General: No confusion Orientation/consciousness: patient oriented x3 and No confusion HENMT Head: Yes normal to inspection, Yes normocephalic and Yes atraumatic Ears: external ears normal Eyes General: appearance normal, both eyes and all related structures Eyelids: Yes eyelids normal Conjunctivae: conjunctivae normal Neck Neck: Yes normal visual inspection and Yes supple Resp Effort & Inspection: normal respiratory effort Auscultation: clear to auscultation bilaterally Cardio Jugular venous distension: no JVD Rate: regular rate Rhythm: regular rhythm Heart sounds: S1 normal heart sound present and S2 normal heart sound present GI Inspection: Yes obesity Palpation (GI): Soft to palpation, nontender and Hernia present ventral Auscultation: normal bowel sounds Skin General skin exam: no rashes or lesions noted Neuro General: patient oriented x3, no focal motor deficits and No confusion Extrem General: Yes full ROM Psych Appearance: grossly normal Immunizations Boostrix Tdap 2.5 Lf unit-8 mcg-5 Lf/0.5 mL intramuscular syringe Performing Provider: Alexandrea Shankar MD [place] [facility] [place] [facility] Administered by: YULISSA Burton on 06/10/24 08:04 Dose Route Admin Location Dispensed Lot Number Expiration Date NDC Food Technician 0.5 mL IM Left Deltoid 0.5 mL [id number] 08/16/26 87801-165-53 [employer] VIS Given Date VIS Provided VIS Publication Date 06/10/24 Single Vaccine 20 Eligibility Eligibility Date Funding Source Not [facility] Eligible 06/10/24 Private Coding Level of Care Code Est Pt Level 3 (41301) Est Pt Prev Care 40-64y(71658) Diagnoses Physical exam Z00.00 Ventral hernia K43.9 Additional Codes KIKO-7 Assessment Billing - KIKO-7 Assessment Tool: KIKO-7 Assessment 85727 ( [id number]) PHQ-9 - 70149 - PHQ-9 Billing: Yes ([id number]) Time Spent (min) 33 Assessment & Plan Assessment & Plan (1) Physical exam: Code(s): Z00.00 - Encounter for general adult medical examination without abnormal findings Category: Medical (2) Ventral hernia: Code(s): K43.9 - Ventral hernia without obstruction or gangrene Category: Medical Plan I will administer the tetanus booster vaccination today to address the due immunization. A supplemental ultrasound will confirm the recent muscle hypertrophy is not indicative of other concerns. Continued management of BPH symptoms through tamsulosin will persist, with regular monitoring. Blood pressure remains well-controlled, supporting the current management strategy. Hypercholesterolemia monitoring through labs should occur as discussed. Clinical interventions align with promoting health maintenance through regular check-ups and lifestyle adherence. Patient was informed and verbally consented to the use of an ambient scribe for clinic note documentation during this visit. During our discussion, I confirmed the administration of the tetanus booster was to proceed today. Given the muscle changes observed due to increased exercise, I secured consent to conduct an ultrasound for further diagnostic clarity. Clarity was given on the ongoing cholesterol testing, ensuring adherence to planned completion. Diagnostic evaluations were discussed, and follow-up plans reiterated, ensuring patient understanding and agreement with the outlined preventive care steps. I provided the patient anticipatory guidance, supporting regular follow-ups to monitor ongoing health needs. Orders: Orders US abdomen complete Today K43.9 - Ventral hernia without obstruction or gangrene TDaP Immunization Today Z23 - Encounter for immunization Patient Instructions: - Receive tetanus booster today. - Complete cholesterol labs within three months. - Follow through with ultrasound scheduling as discussed. - Continue prescribed tamsulosin for BPH management. - Maintain regular exercise regimen. - Monitor blood pressure and adhere to lifestyle management for hypertension.
== END 2024-06-10 08:08 | disposition home or self-care (01) ==
LOC: HO.HMCH 07:38
PROVIDERS: PCP Internal Medicine; Visit Provider Internal Medicine
DX: Z00.00 Encounter for general adult medical examination without abnormal findings (principal); K43.9 Ventral hernia without obstruction or gangrene; Z23 Encounter for immunization

== ENCOUNTER 2024-06-10 07:38 | Outpatient (REF) | payer BC, SELFPAY ==
--- OUTSIDE RECORDS SUMMARY | 2024-06-10 08:28 | XMS_ITS | Clinical Summary ---
Author Organization [facility] it Address [address] [place] [address] Care Team Providers Care Property Disposal Manager Name Role Phone Alexandrea Shankar MD Primary Care Provider [phone] Surgical History Surgery Date Site/Laterality Comments OTHER [...] age to complete this topic Care Teams Property Disposal Manager Relationship Specialty Start Date End Date Alexandrea Shankar MD [address] [place] [address] , [address] [facility] D[facility] FABIOLA Staples PCP - General 02/14/16
[2024-06-10 09:16] LABS: Alanine Aminotransferase 35 U/L (0-40); Albumin Level 4.4 g/dL (3.5-5.0); Alkaline Phosphatase 50 U/L (39-117); Anion Gap 9 (12-20); Aspartate Amino Transferase 39 U/L (5-37); Bilirubin Total 0.8 mg/dL (0.0-1.0); Blood Urea Nitrogen 18 mg/dL (9-16); Calcium 9.8 mg/dL (8.4-10.2); Carbon Dioxide 28 mmol/L (22-29); Chloride 107 mmol/L (96-108); Cholesterol 190 mg/dL (<200); Estimated Glomerular Filt Rate > 60; Glucose Fasting 93 mg/dL (60-99); HDL Cholesterol 54 mg/dL (>40); LDL Cholesterol Calculated 121 mg/dL (<100); Potassium 3.8 mmol/L (3.3-5.1); Sodium 140 mmol/L (135-145); Total Protein 7.4 g/dL (6.5-8.0); Triglycerides 79 mg/dL (<150)
[2024-06-10 09:23] LABS: PSA,Total (Free>4and<10) 3.99 ng/mL (0.00-4.00)
== END 2024-06-10 07:39 | disposition home or self-care (01) ==
LOC: HO.LAB 07:38
PROVIDERS: PCP Internal Medicine; Visit Provider Internal Medicine
DX: Z00.00 Encounter for general adult medical examination without abnormal findings (principal); Z23 Encounter for immunization; Z12.5 Encounter for screening for malignant neoplasm of prostate; K43.9 Ventral hernia without obstruction or gangrene; E78.00 Pure hypercholesterolemia, unspecified; N40.0 Benign prostatic hyperplasia without lower urinary tract symptoms; Z79.899 Other long term (current) drug therapy; Z87.442 Personal history of urinary calculi; E78.5 Hyperlipidemia, unspecified; R35.1 Nocturia
CPT/HCPCS: 36415; 80053; 80061; 84153; 90471; 90715; 96127

== ENCOUNTER 2024-06-17 09:24 | Outpatient (AMB) | payer OTHER, SELFPAY ==
[2024-06-17 09:29] VITALS: BP 138/76; PULSE 80; RESP 18; TEMP 36.9; O2SAT 98; BMI 30.7
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
--- OUTSIDE RECORDS SUMMARY | 2024-06-17 10:25 | XMS_ITS | Clinical Summary ---
Author Organization [facility] it Address [address] [place] [address] Care Team Providers Care Track Helper Name Role Phone Alexandrea Shankar MD Primary Care Provider [phone] Surgical History Surgery Date Site/Laterality Comments OTHER [...] - 2023-2 5 season) 2023 Influenza Vaccine (Season Ended) 2024 02/11/2015, 02/18/2013 HIB Vaccines Aged Out No longer [...] age to complete this topic Care Teams Track Helper Relationship Specialty Start Date End Date Alexandrea Shankar MD [address] [place] [address] , [address] [facility]A: [facility] FABIOLA Staples PCP - General 02/14/16
== END 2024-06-17 10:26 | disposition home or self-care (01) ==
PROVIDERS: PCP Internal Medicine
DX: S01.111A Laceration without foreign body of right eyelid and periocular area, initial encounter (principal); M79.18 Myalgia, other site; V89.2XXA Person injured in unspecified motor-vehicle accident, traffic, initial encounter; Z04.3 Encounter for examination and observation following other accident

== ENCOUNTER → 2024-06-17 09:24 | Outpatient (BNVA) | payer BC, SELFPAY | PROVIDERS: PCP Internal Medicine ==

== ENCOUNTER 2024-08-08 08:03 | Outpatient (REF) | payer BC, SELFPAY ==
--- NOTE | ~2024-08-08 | US_ITS ---
CLINICAL HISTORY: K43.9 - Ventral hernia without obstruction or gangrene ULTRASOUND UMBILICAL AREA Comparison: None Findings: Nonspecific tiny defect in the abdominal wall is identified with a small artery coursing through the defect. There is no evidence for an umbilical hernia. Impression: 1. No fat or bowel containing periumbilical hernia identified. This document has been electronically signed by: Kelly Raymond DO on 08/08/2024 15:52:59
--- OUTSIDE RECORDS SUMMARY | 2024-08-08 08:07 | XMS_ITS | Clinical Summary ---
Author Organization [facility] it Address [address] [place] [address] Care Team Providers Care Graphic Specialist Name Role Phone Alexandrea Shankar MD Primary Care Provider [phone] Surgical History Surgery Date Site/Laterality Comments OTHER [...] age to complete this topic Care Teams Graphic Specialist Relationship Specialty Start Date End Date Alexandrea Shankar MD [address] [place] [address] , [address] [facility]: [facility] FABIOLA Staples PCP - General 02/14/16
== END 2024-08-08 08:04 | disposition home or self-care (01) ==
LOC: HO.US 08:03
PROVIDERS: PCP Internal Medicine; Visit Provider Internal Medicine
DX: K43.9 Ventral hernia without obstruction or gangrene (principal)
CPT/HCPCS: 76705

== ENCOUNTER → 2024-08-08 08:12 | Outpatient (BNV) | payer BC, SELFPAY | PROVIDERS: PCP Internal Medicine; Visit Provider Radiology Diagnostic Radiology | DX: K43.9 Ventral hernia without obstruction or gangrene (principal) | CPT/HCPCS: 76705 ==

== ENCOUNTER 2024-11-07 12:17 | Outpatient (REF) | payer BC, SELFPAY ==
--- OUTSIDE RECORDS SUMMARY | 2024-11-07 12:49 | XMS_ITS | Clinical Summary ---
Author Organization [facility] it Address [address] [place] [address] Care Team Providers Care Public Relations Manager Name Role Phone Alexandrea Shankar MD Primary Care Provider [phone] Surgical History Surgery Date Site/Laterality Comments OTHER [...] Panel) 02/05/2022 Colorectal Cancer Screening: Colonoscopy 02/05/2022 HIV Screening 02/05/2022 Hepatitis C Screening 02/05/2022 Social Influencers of Health Screening 02/05/2022 DTaP,Tdap,and Td Vaccines (2 - Td or Tdap) 02/18/2023 02/18/2013 Depression Screening 03/05/2024 COVID-19 Vaccine (1 - 2023-2 5 season) 2024 Influenza Vaccine (#1) 2024 5, 02/18/2013 HIB Vaccines Aged Out No [...] age to complete this topic Care Teams Public Relations Manager Relationship Specialty Start Date End Date Alexandrea Shankar MD [address] [place] [address] , [address] [facility] D[facility]A: [facility] FABIOLA Staples PCP - General 02/14/16
[2024-11-07 13:36] LABS: PSA,Total (Free>4and<10) 4.10 ng/mL (0.00-4.00)
[2024-11-12 11:38] LABS: Free Prostate Spec Ag 0.9 ng/mL; Percent Free Prostate Spec Ag 23 % (calc) (>25)
== END 2024-11-07 12:18 | disposition home or self-care (01) ==
LOC: HO.LAB 12:17
PROVIDERS: PCP Internal Medicine; Visit Provider Urology
DX: N40.0 Benign prostatic hyperplasia without lower urinary tract symptoms (principal); R97.20 Elevated prostate specific antigen [PSA]; Z12.5 Encounter for screening for malignant neoplasm of prostate
CPT/HCPCS: 36415; 84153; 84154

== ENCOUNTER 2024-12-04 16:02 | Outpatient (AMB) | payer BC, SELFPAY ==
--- NOTE | 2024-12-04 16:03 | MHC.OFFVIS ---
Intake Visit Reasons: 6m/PSA Intake Note: Patient is present via telehealth for a 6m follow up/PSA 11/07 Total PSA:4.10/Free PSA:0.9 Urology Medication: Tamsulosin Antibiotic Allergies: None Blood Thinners: None Instructor Adjunct Surgical Technician Required: Yes Instructor Adjunct Surgical Technician Name: Bronson [id number] Allergies No Known Allergies (No Known Allergies*) Allergy (Verified 12/04/24 16:03) HPI Comments Details: 12/04/2024--Nelson presents as a telehealth follow-up elevated PSA. Reviewed labs PSA is 9 I am mayela reviewed labs on 11/07/2024 PSA was 4.10. The patient had a prostate biopsy March or March 2022 which was benign. I will discuss further evaluation with MRI, History of Present Illness The patient is a 54-year-old male presenting with elevated Prostate-Specific Antigen (PSA) levels. The PSA level was recorded at 4.10 ng/mL on November 07, 2024, showing a slight increase from the previous level of 3.99 ng/mL in June. A benign prostate biopsy was performed in March 2022, ruling out malignancy at that time. Further evaluation with a prostate MRI has been recommended to ensure thorough monitoring. Results - PSA level on November 07, 2024: 4.10 ng/mL - Prostate biopsy in March 2022: Benign Plan 1. Elevated Prostate-Specific Antigen (Psa) - Plan to conduct a prostate MRI for further evaluation and monitoring. - Follow-up appointment to review MRI results and discuss further management. 04/25/24--Paul is follow-up due to BPH and elevated PSA. I have reviewed with him repeat PSA 04/11/2024 is 3.98 is stable. He takes tamsulosin for obstructive urinary symptoms. We will continue to monitor PSA. Family history maternal grandfather with prostate cancer. He states his father has no history of prostate cancer. 12/14/23--Nelson is a 52-year-old male patient who presents to the office for kidney stones, BPH and ED follow-up. Last visit 03/16/2023-- he is on tamsulosin, states voiding without difficultyThe patient had prostate biopsy done on March 2022 for abnormal prostate nodule. Results were benign. PSA 17531-3.89 ng/mL. Renal ultrasound 10/19/2023-negative for recurrent nephrolithiasis. Will continue to monitor PSA. PSA in 3 months. 08/02/22--The patient is taking Flomax daily with benefits. The patient did not take Cialis 5 mg. He states that he was having some chest pain and palpitations and was in the ER this morning. It was stated that the chest pain is secondary to costalchondritis and the ER doctor gave him some ant-inflammatory and advised to follow-up with his PCP. After leaving the ER he had recurrent chest pains and I advised him to go back to the ER. Evaluation today-- Blood: Negative, leukocytes: negative. 04/10/22-- with [employer]ODUCTION [employer] Paty Davis--She reviewed results with him at that time and is on Flomax, reported improvement in urinary stream with the medication. She also started him on Cialis 5 mg to help with erections [facility] Medical History Hypokalemia Obesity (BMI 30.0-34.9) Surgical History History of arthroscopy of left knee Family History Father Suicide Mother No problems noted. Maternal Grandfather Prostate cancer Paternal Grandfather Hypertension Stroke Social History Housing: Apartment Alcohol intake: current Alcohol intake frequency: holidays/special occasions only Alcohol type: beer Patient Tobacco Use Status: Never used Tobacco e-Cigarette/Vaping Use: Never Used Second Hand Smoke Exposure: No service: No Current occupational status: employed Current occupational exposures/hazards: No Cognitive needs: No Hearing needs: No Vision needs: Yes (Glasses) Review of Systems Const All systems reviewed & are unremarkable except as noted in HPI and below Reports no additional complaints Eyes Reports no additional complaints ENT Reports no additional complaints Card Reports no additional complaints Resp Reports no additional complaints GI Reports no additional complaints Reports as per HPI Musc Reports no additional complaints Skin/Breast Reports system reviewed and no additional complaints, except as documented Neuro Reports no additional complaints Psych Reports no additional complaints Endo Reports no additional complaints Riley/Lymph Reports no additional complaints Aller/Immun Reports no additional complaints Telehealth Telehealth Telehealth Platform: [facility] Location of provider rendering services: practice address Location of patient: address on file Patient Identification confirmed using: Name, : Yes Telehealth method: voice only Patient verbally consented to treatment: Yes Patient verbally consented to billing insurance company: Yes Patient informed of any privacy concerns related to visit: Yes Minutes spent on Phone/Video with Pt.: 14 Results Reviewed Results Reviewed: Date of Service: 10/19/23 US KIDNEYS BILATERAL CLINICAL INFORMATION: Renal calculus. COMPARISON: CT abdomen and pelvis 01/17/2022. TECHNIQUE: Real-time imaging of the kidneys. FINDINGS: RIGHT KIDNEY: 10.6 x 5.8 x 6.1 cm (SAG x AP x TRV). The kidney is normal in size, contour, and echogenicity. Renal cortical thickness is normal. No renal calculi or hydronephrosis. 1.0 cm simple cyst in the lower pole. No imaging follow-up is recommended. LEFT KIDNEY: 10.2 x 6.1 x 5.7 cm (SAG x AP x TRV). The kidney is normal in size, contour, and echogenicity. Renal cortical thickness is normal. No renal calculi or hydronephrosis. 1.4 cm thinly septated cyst in the upper pole. No imaging follow-up is recommended. IMPRESSION: No visible nephrolithiasis. No hydronephrosis. Date of Service: 01/17/22 EXAMINATION: CT ABDOMEN AND PELVIS WITHOUT CONTRAST? CLINICAL INFORMATION: Left flank and back pain since Sunday, now worse? COMPARISON: None? FINDINGS: LUNG BASES: The visualized lung bases are unremarkable.? LIVER, GALLBLADDER, AND BILIARY TREE: The liver is normal in size, shape, and attenuation. No focal hepatic lesion or biliary ductal dilatation is present. The gallbladder is unremarkable with no evidence of radiopaque gallstones, gallbladder wall thickening, or obvious pericholecystic inflammatory changes.? PANCREAS: Unremarkable.? SPLEEN: Unremarkable.? ADRENAL GLANDS: Unremarkable.? KIDNEYS AND URETERS: Punctate 1 mm nonobstructing right lower pole renal calculus. No other radiodense urinary tract calculi. No hydronephrosis. Small 1 cm low-density benign/simple appearing left posterior upper pole renal cyst. No further follow-up required. No other renal lesion. No perinephric stranding. BLADDER: Mildly diffusely thick-walled and moderately distended. No focal bladder wall thickening.? GASTROINTESTINAL TRACT: The small and large bowel are unremarkable. The appendix is unremarkable. No ascites or free air. ABDOMINAL WALL: Possible tiny fat-containing inguinal hernias. Tiny fat-containing umbilical hernia. LYMPH NODES: No lymphadenopathy. VASCULAR: Normal caliber abdominal aorta. PELVIC VISCERA: Prostate gland is enlarged measuring 5.3 x 4.4 x 5 cm in size slightly indenting into the bladder base.? OSSEOUS STRUCTURES: No acute fracture or suspicious osseous lesion. Mild multilevel degenerative disc disease in the thoracic spine. IMPRESSION: 1.? Punctate 1 mm nonobstructing right lower pole renal calculus. No other radiodense urinary tract calculi. No hydronephrosis. 2.? No acute intra-abdominal process. 3.? Prostatomegaly. Slightly thick-walled appearance of the urinary bladder. Correlate clinically with signs or symptoms of chronic bladder outlet obstruction. ? Assessment & Plan Assessment & Plan (1) Elevated PSA: Code(s): R97.20 - Elevated prostate specific antigen [PSA] Category: Medical (2) BPH with elevated PSA: Code(s): N40.0 - Benign prostatic hyperplasia without lower urinary tract symptoms; R97.20 - Elevated prostate specific antigen [PSA] Category: Medical (3) History of kidney stones: Code(s): Z87.442 - Personal history of urinary calculi Category: Medical Plan Plan 1. Elevated Prostate-Specific Antigen (Psa) - Plan to conduct a prostate MRI for further evaluation and monitoring. - Follow-up appointment to review MRI results and discuss further management. Orders: Orders MR Prostate wo/w con 3 Months R97.20 - Elevated prostate specific antigen [PSA] MR CAD 3 Months R97.20 - Elevated prostate specific antigen [PSA] Patient Instructions: The patient had an opportunity to ask questions regarding treatment plan. The patient expressed understanding and agreement with the above treatment plan. The patient is aware they should contact our office by phone for worsening of their current condition or the appearance of new symptoms. Compliance is encouraged with any medications and followup testing that is ordered. It is a privilege to be allowed the opportunity to participate in the urologic care of your patient. If you have any questions or concerns regarding treatment for the above conditions please do not hesitate to contact me. The office telephone contact is [phone]. This note is constructed in part using voice recognition software. While every effort has been made to ensure accuracy computer systems security administrator errors may have been included. Yours sincerely, Nita Wang MD Scribe Plan - Not visible on output: Patient was informed and verbally consented to the use of an ambient scribe for clinic note documentation during this visit. Coding Level of Care Code Tele Est Pt Level 3 (03108) Complex EM visit Add On G2211 Diagnoses Elevated PSA R97.20 BPH with elevated PSA N40.0; R97.20 History of kidney stones Z87.442
--- OUTSIDE RECORDS SUMMARY | 2024-12-04 16:58 | XMS_ITS | Clinical Summary ---
Author Organization [facility] it Address [address] [place] [address] Care Team Providers Care Prn Occupational Therapist Name Role Phone Alexandrea Shankar MD Primary Care Provider [phone] Surgical History Surgery Date Site/Laterality Comments OTHER [...] Health Maintenance Due Date Last Done Comments Colorectal Cancer Screening: Colonoscopy 1970 Hepatitis B Vaccines (1 of 3 - 19+ 3-dose series) 1989 Pneumococcal Vaccine: 50+ Years (1 of 1 - PCV) 01/02/2020 Zoster Vaccines (1 of 2) 01/02/2020 Cholesterol Screening (Lipid Panel) 02/05/2022 HIV Screening 02/05/2022 Hepatitis C Screening 02/05/2022 Social Influencers of Health Screening 02/05/2022 DTaP,Tdap,and Td Vaccines (2 - Td or Tdap) 02/18/2023 02/18/2013 Depression Screening 03/05/2024 COVID-19 Vaccine (1 - 2023-2 5 season) 2024 Influenza Vaccine (#1) 2024 5, 02/18/2013 RSV Immunization Adult Patients (1 - 1-dose 75+ series) 2045 HIB Vaccines Aged Out No longer eligi [...] age to complete this topic Care Teams Prn Occupational Therapist Relationship Specialty Start Date End Date Alexandrea Shankar MD [address] [place] [address] , [address] [facility] D[facility]A: [facility] FABIOLA Staples PCP - General 02/14/16
== END 2024-12-04 16:40 | disposition home or self-care (01) ==
LOC: HO.HUSH 16:02
PROVIDERS: PCP Internal Medicine; Visit Provider Urology
DX: R97.20 Elevated prostate specific antigen [PSA] (principal); N40.0 Benign prostatic hyperplasia without lower urinary tract symptoms; Z87.442 Personal history of urinary calculi
CPT/HCPCS: 99213